=== PATIENT | female | born 1935 | race Caucasian/White ===

== ENCOUNTER 2016-09-20 09:51 | Inpatient (IN) ==
--- NOTE | 2016-09-20 09:59 | Emergency Department Note ---
Disposition Clinical Impression: Nausea & vomiting Qualifiers: Vomiting type: unspecified Vomiting Intractability: unspecified Qualified Code( s): R11.2 - Nausea with vomiting, unspecified Mastoiditis Qualifiers: Laterality: right Qualified Code(s): H70.91 - Unspecified mastoiditis, right ear Disposition: Admitted As Inpatient Condition: Serious Referrals: Unassigned,Provider [Non-Partnered Physician] - Forms: ED Satisfaction Letter Time of Disposition: 12:30 Nausea/Vomiting/Diarrhea HPI - General Chief complaint: ED Nausea/Vomiting/Diarrhea Stated complaint: N/V Time Seen by Provider: 09/20/16 09:53 Source: patient, family, EMS Mode of arrival: EMS Limitations: no limitations Nursing Notes Reviewed: Yes Vital Signs Reviewed: Yes - History of Present Illness HPI Narrative: 81-year-old with a 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 The patient received G -tube feeding last night and vomited this morning. Squad gave him a 500 mL fluid bolus with improvement in status. Daughter states the patient had a temperature 101.3 at home and the squad got 99. Pt Subjective Complaint: nausea, vomiting Onset (ago): day(s) Description of emesis: food contents (7) If pain, Location of pain: other (Associated with mandibular spread of her cancer) Severity: moderate Quality: aching Consistency: constant Improves with: nothing Associated symptoms: Reports: fever/chills, malaise - Related Data Previous Rx's Medication Instructions Recorded Lactose-Reduced Food/Fiber [Jevity 1 can PO 6XD #180 can 06/19/16 1.2 Benito Liquid] Omeprazole [PriLOSEC] 20 mg PO DAILY #90 cap 07/10/16 Clindamycin Palmitate HCl [Cleocin 300 mg PO QID #800 mls 08/03/16 Palmitate] Supplies [SUPPLIES] 1 each .ROUTE DAILY #30 each 08/03/16 Tobramycin/Dex Opth DROPS 1 drop BOTH EYES Q6H #1 bottle 08/03/16 [Tobradex Opth Drops] Capecitabine [Xeloda] 2 tab PO BID #56 tablet 08/20/16 Hydromorphone HCl [Dilaudid] 0.5 tab PO Q6H PRN #30 tablet 08/20/16 Clindamycin Palmitate HCl [Cleocin 20 ml GTUBE BID #280 mls 08/26/16 Palmitate] Ondansetron HCl [Zofran] 4 mg PO Q6H PRN #40 tablet 09/17/16 Prochlorperazine Maleate 10 mg PO Q6HR PRN #40 tablet 09/17/16 [Compazine] Allergies Allergy/AdvReac Type Severity Reaction Status Date / Time No Known Allergies Allergy Verified 07/10/16 09:41 All systems ED: reviewed and negative except as stated. Constitutional: Reports: fever. Denies: chills, weakness, weight change Eyes: Denies: eye pain, eye discharge, vision change ENT ED: Denies: ear pain, throat pain, dental pain, hearing loss, epistaxis, congestion, dysphagia Cardiovascular: Denies: chest pain, palpitations, dyspnea on exertion, edema, syncope Respiratory: Denies: cough, dyspnea, wheezes, hemoptysis, stridor Gastrointestinal: Reports: nausea, vomiting. Denies: abdominal pain, diarrhea, constipation, hematemesis, melena, hematochezia Genitourinary: Denies: dysuria, frequency, hematuria, discharge Musculoskeletal: Denies: back pain, neck pain, arthralgia, myalgia Integumentary: Denies: rash, abrasion, lesions Neurological: Denies: headache, weakness, numbness, paresthesias, confusion, abnormal gait, vertigo Psychiatric: Denies: anxiety, depression, suicidal thoughts, homicidal thoughts , auditory hallucinations, visual hallucinations Endocrine: Denies: fatigue Hematological/Lymphatic: Denies: easy bleeding, easy bruising Allergic/Immunologic: Denies: facial swelling, urticaria Past Medical History - Past Medical History Medical history: Reports: cancer, coronary artery disease, hyperlipidemia, hypertension, myocardial infarction Surgical history: Reports: angioplasty/stent, coronary bypass (CABG), other Psychiatric history: Reports: no psych history STEM MAKER history: Reports: no STEM MAKER history - Social History Smoking Status: Former smoker Smokeless Tobacco Status: No Alcohol use: Reports: none Drug use: Reports: none Physical Exam - General Limitations: no limitations General appearance: alert, in no apparent distress - Head Head exam: atraumatic, normocephalic, normal inspection - Eye Eye exam: Present: normal appearance, PERRL, EOMI - ENT ENT exam: mucous membranes dry, other (Lesion to the right side of her mandible with dressing in place) - Neck Neck exam: Present: normal inspection, full ROM, trachea midline - Chest Chest inspection: Present: normal inspection, symmetric chest wall rise - Respiratory Respiratory exam: Present: normal lung sounds bilaterally - Cardiovascular Cardiovascular exam: Present: regular rate, normal rhythm, normal heart sounds - Abdominal Exam Abdominal exam: Present: soft, Non-Tender. Absent: tenderness, distention, guarding, rebound, rigidity - Extremities Exam Extremities exam: Present: normal inspection, full ROM. Absent: tenderness, pedal edema - Expanded Lower Extremity Exam Neurovascular/Tendon exam: Absent: motor deficit, sensory deficit, tendon deficit Gait: not tested/not observed - Back Exam Back exam: Present: normal inspection - Neurological Exam Neurological exam: Present: alert. 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 Workup included a CT of the head which showed a new mastoid fluid and sinus fluid concerning for infection. Patient's had nausea vomiting CT of the abdomen shows no acute findings. Consultation with hematology. Time: 12:29 - Consultations Consultation #1: Discussed with Dr. Yip, we'll start antibiotics and they will see in consult. Time: 11:58 Consultation #2: Discussed with Dr. Oscar ervin. Time: 12:29 Vital Signs Temperature 98.2 F 09/20/16 09:57 Pulse Rate 109 09/20/16 09:57 Respiratory Rate 18 09/20/16 09:57 Blood Pressure 123/58 09/20/16 09:57 O2 Sat by Pulse Oximetry 93 09/20/16 09:57 Temperature 98.2 F 09/20/16 09:57 Pulse Rate 109 09/20/16 09:57 Respiratory Rate 18 09/20/16 09:57 Blood Pressure 123/58 09/20/16 09:57 O2 Sat by Pulse Oximetry 95 09/20/16 10:35 Oxygen Delivery Oxygen Delivery Room Air Nausea/Vomiting/Diarrhea - Lab Data Lab results reviewed: Yes I reviewed the patient's lab results. Result diagrams: 09/20/16 10:17 09/20/16 10:17 Lab Results 09/20/16 09/20/16 09/20/16 Range/Units 10:17 10:17 10:28 WBC 15.0 H (4.3-11.1) K/mcL RBC 3.24 L (3.82-4.97) M/mcL Hgb 9.4 L (11.5-15.4) g/dL Hct 29.6 L (35.3-44.9) % MCV 91.4 (83.0-100.0) fL MCH 29.0 (28.0-33.3) pg MCHC 31.8 (31.6-35.5) g/dL RDW 15.9 H (11.5-14.5) % Plt Count 239 (140-400) K/mcL MPV 9.1 L (9.4-12.4) fL Immature Gran % 0.3 (0-4) % Seg Neutrophils % 83.8 % Lymphocytes % 5.7 % Monocytes % 10.0 % Eosinophils % 0.1 % Basophils % 0.1 % Neutrophils # 12.6 H (1.6-8.9) K/mcL Lymphocytes # 0.9 (0.6-4.6) K/mcL Monocytes # 1.5 H (0.0-1.3) K/mcL Eosinophils # 0.0 (0.0-0.6) K/mcL Basophils # 0.0 (0.0-0.2) K/mcL Sodium 139 (136-145) mEq/L Potassium 3.4 L (3.5-4.5) mEq/L Chloride 104 (98-109) mEq/L Carbon Dioxide 28 (19-29) mEq/L BUN 26 H (7-20) mg/dL Creatinine 0.72 (0.57-1.11) mg/dL Est GFR ( Amer) > 60 (> 60) Est GFR (Non-Af Amer) > 60 (> 60) BUN/Creatinine Ratio 36 H (6-26) Glucose 132 H (70-99) mg/dL Calculated Osmolality 295 (280-300) Lactic Acid 1.0 (0.5-2.2) mmol/L Calcium 8.5 L (8.6-10.8) mg/dL Urine Color (Yellow) Urine Clarity (Clear) Urine pH (5.0-8.0) pH Units Ur Specific Spelter (1.010-1.025) Urine Protein (Neg-Trace) mg/dL Urine Glucose (UA) (Normal) mg/dL Urine Ketones (Negative) mg/dL Urine Blood (Negative) Urine Nitrite (Negative) Urine Bilirubin (Negative) Urine Urobilinogen (Normal) mg/dL Ur Leukocyte Esterase (Negative) Urine Microscopic RBC (0-3) per hpf Urine Microscopic WBC (0-3) per hpf Ur Squamous Epith Cells (None-Few) per lpf Urine Bacteria (None-Few) per hpf Hyaline Casts (None-Few) per lpf Ur Culture Indicated? (NO) 09/20/16 Range/Units 11:23 WBC (4.3-11.1) K/mcL RBC (3.82-4.97) M/mcL Hgb (11.5-15.4) g/dL Hct (35.3-44.9) % MCV (83.0-100.0) fL MCH (28.0-33.3) pg MCHC (31.6-35.5) g/dL RDW (11.5-14.5) % Plt Count (140-400) K/mcL MPV (9.4-12.4) fL Immature Gran % (0-4) % Seg Neutrophils % % Lymphocytes % % Monocytes % % Eosinophils % % Basophils % % Neutrophils # (1.6-8.9) K/mcL Lymphocytes # (0.6-4.6) K/mcL Monocytes # (0.0-1.3) K/mcL Eosinophils # (0.0-0.6) K/mcL Basophils # (0.0-0.2) K/mcL Sodium (136-145) mEq/L Potassium (3.5-4.5) mEq/L Chloride (98-109) mEq/L Carbon Dioxide (19-29) mEq/L BUN (7-20) mg/dL Creatinine (0.57-1.11) mg/dL Est GFR ( Amer) (> 60) Est GFR (Non-Af Amer) (> 60) BUN/Creatinine Ratio (6-26) Glucose (70-99) mg/dL Calculated Osmolality (280-300) Lactic Acid (0.5-2.2) mmol/L Calcium (8.6-10.8) mg/dL Urine Color Yellow (Yellow) Urine Clarity Cloudy A (Clear) Urine pH 7.0 (5.0-8.0) pH Units Ur Specific Spelter 1.018 (1.010-1.025) Urine Protein Negative (Neg-Trace) mg/dL Urine Glucose (UA) Normal (Normal) mg/dL Urine Ketones Negative (Negative) mg/dL Urine Blood Negative (Negative) Urine Nitrite Negative (Negative) Urine Bilirubin Negative (Negative) Urine Urobilinogen Normal (Normal) mg/dL Ur Leukocyte Esterase Negative (Negative) Urine Microscopic RBC 5-15 H (0-3) per hpf Urine Microscopic WBC 0-3 (0-3) per hpf Ur Squamous Epith Cells Many H (None-Few) per lpf Urine Bacteria None Seen (None-Few) per hpf Hyaline Casts None Seen (None-Few) per lpf Ur Culture Indicated? NO (NO) - Radiology Data Radiology results reviewed: Yes I reviewed the patient's radiology results. Abdomen/Pelvis CT 09/20/16 09:54 IMPRESSION: 1. No acute abnormality. 2. Extensive colonic diverticulosis. 3. Cholelithiasis. D/ / 09/20/2016 11:27:52 Milo Reaves MD / [facility] Interpreting Provider: Milo Reaves MD Chest X-Ray 09/20/16 09:55 IMPRESSION: No acute cardiopulmonary disease. D/ / 09/20/2016 10:57:05 Fer Mi MD / [facility] Interpreting Provider: Fer Mi MD Head CT 09/20/16 10:02 IMPRESSION: No acute intracranial abnormality. Right ethmoid and right mastoid air cell disease, new or increased since prior study. Fluid within the right sphenoid sinus is present raising the possibility of acute inflammation D/ / Amber Walton Cha, MD / Amber Walton Cha, MD Interpreting Provider: Amber Walton Cha, MD
[2016-09-20 10:23] LABS: Basophils % 0.1 %; Eosinophils % 0.1 %; Hematocrit 29.6 % (35.3-44.9); Hemoglobin 9.4 g/dL (11.5-15.4); Immature Granulocytes % 0.3 % (0-4); Lymphocytes # 0.9 K/mcL (0.6-4.6); Lymphocytes % 5.7 %; Mean Corpuscular HGB Conc 31.8 g/dL (31.6-35.5); Mean Corpuscular Volume 91.4 fL (83.0-100.0); Mean Platelet Volume 9.1 fL (9.4-12.4); Monocytes # 1.5 K/mcL (0.0-1.3); Neutrophils # 12.6 K/mcL (1.6-8.9); Platelet Count 239 K/mcL (140-400); Red Blood Count 3.24 M/mcL (3.82-4.97); Red Cell Distribution Width 15.9 % (11.5-14.5); Segmented Neutrophils % 83.8 %
[2016-09-20 10:37] LABS: BUN/Creatinine Ratio 36 (6-26); Blood Urea Nitrogen 26 mg/dL (7-20); Calcium 8.5 mg/dL (8.6-10.8); Carbon Dioxide 28 mEq/L (19-29); Chloride 104 mEq/L (98-109); Glucose 132 mg/dL (70-99); Osmolality,Calculated 295 (280-300); Potassium 3.4 mEq/L (3.5-4.5); Sodium 139 mEq/L (136-145); eGFR For African Americans > 60 (> 60); eGFR For Non-African Americans > 60 (> 60)
[2016-09-20 11:29] LABS: Bilirubin,Urine Negative (Negative); Blood,Urine Negative (Negative); Clarity,Urine Cloudy (Clear); Color,Urine Yellow (Yellow); Glucose,Urine (UA) Normal (Normal); Ketones,Urine Negative (Negative); Leukocyte Esterase,Urine Negative (Negative); Nitrite,Urine Negative (Negative); Protein,Urine Negative (Neg-Trace); Specific Gravity,Urine 1.018 (1.010-1.025); Urobilinogen,Urine Normal (Normal)
[2016-09-20 11:31] LABS: Bacteria,Urine None Seen per hpf (None-Few); Hyaline Casts,Urine None Seen per lpf (None-Few); Squamous Epithelial Cell,Urine Many per lpf (None-Few); WBC,Urine 0-3 per hpf (0-3)
[2016-09-20] MEDS ORDERED: Piperacillin/Tazobactam 3.375 GM in D5% in Water (Mini-Bag+) 100 ML IVPB ONE (12:00)
[2016-09-20] MEDS ORDERED: Pantoprazole 40 MG VIAL IVP SCH (13:15)
[2016-09-20] MEDS ORDERED: Naloxone 0.4 MG/ML INJ IVP PRN (13:15)
[2016-09-20] MEDS ORDERED: *HR* HYDROmorphone (PF) 1 MG/ML SYRINGE IVP PRN (13:15)
[2016-09-20] MEDS ORDERED: Ondansetron 4 MG/2 ML VIAL IVP PRN (13:15)
[2016-09-20] MEDS ORDERED: 0.9 % Sodium Chloride 500 ML IVC ONE (13:44)
--- NOTE | 2016-09-20 13:52 | Internal Med History&Physical ---
<Matty Figueroa - Last Filed: 09/20/16 14:47> Date of Encounter: 09/20/16 Time of Encounter: 12:30 Assessment and Plan (1) Sepsis Current visit: Yes Status: Acute Patient presents with sepsis upon admission to the ED with WBC of 15 and heart rate of 109. Patient's temperature upon admission to ED is 99 via axillary. Rectal temp ordered stat due to patient feeling warmer than 99.0F. Patient to receive IV bolus of normal saline 500 mL followed by IV normal saline 100 mL per hour. Timed lactic acids ordered. Patient received IV Zosyn in the ED. We will continue IV Zosyn 3.375 g every 8 and add IV vancomycin with pharmacy dosing. Continuous cardiac telemetry and supplemental O2 ordered. Patient to be monitored closely for increased signs of infection, sepsis, and cardiac/ respiratory decline. Qualifiers: Sepsis type: sepsis due to unspecified organism Qualified Code(s): A41.9 - Sepsis, unspecified organism (2) Nausea & vomiting Current visit: Yes Status: Acute Patient presents with acute nausea and vomiting for the past 7 days. Patient is currently unable to take any food, medication, or fluids through her PEG tube due to vomiting. IV Zofran ordered when necessary and IV Protonix 40 mg daily ordered with initial dose ordered stat. We will monitor I&O as well as patient's daily weight. Tube feedings to be resumed as tolerated. Currently patient's medications have been held and converted to IV form with the exception of Jevity which will be administered as tolerated. Qualifiers: Vomiting type: cyclical vomiting Vomiting Intractability: intractable Qualified Code(s): G43.A1 - Cyclical vomiting, intractable (3) Dehydration Current visit: Yes Status: Acute Patient presents with dehydration due to 7 days of nausea and vomiting. On examination, patient's mucous membranes are dry. Mild skin tenting present. IV bolus of normal saline ordered, to be followed by IV normal saline 100 mL per hour. Electrolyte protocol ordered. Follow-up labs ordered. Will monitor patient's I's and O's as well as daily weight. (4) Tachycardia Current visit: Yes Status: Acute Patient presents with acute tachycardia related to current infection status and sepsis. Patient's family denies any cardiac history. Placed on continuous cardiac telemetry and supplemental O2. IV antibiotics ordered for infection coverage. Sepsis protocol to be followed. (5) Encounter for palliative care Current visit: Yes Status: Acute Patient presents with advanced stage head and neck cancer. Mrs. Hong is admitted for sepsis and infection. Patient has open wound of right jaw and cheek which extends through the fascia into the mouth due to cancer. Patient's current BMI 17.8. Patient has been experiencing nausea and vomiting for over 7 days and is unable to take food, medications or liquids through her PEG tube. Discussed the need for proper care with family who is amenable to having Mrs. Harris followed by palliative care and hospice. Discussed the case with Dr. Acosta who will see the patient. (6) Hypertension Current visit: Yes Status: Chronic Patient has a history of chronic hypertension but upon admission her BP is 123/ 58. We will monitor patient's BP and vital signs and consider adding IV Lopressor if patient becomes hypertensive. Patient is currently experiencing nausea and vomiting and able to take anything via PEG tube. 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 Upon admission, patient's hemoglobin is 9.4 and hematocrit is 29.6 with results are not far off from patient's baseline over the past several months. We will continue to watch her levels through follow-up labs that have been ordered. Qualifiers: Anemia type: unspecified type Qualified Code(s): D64.9 - Anemia, unspecified (8) Open facial wound Current visit: Yes Status: Chronic Patient presents with open facial wound that extends through the fascia into the mouth due to cancer diagnosis. Patient's family states that the wound has increased in size considerably. Patient is currently followed by Dr. Escobedo for oncology. Oncology consult ordered and placed. Qualifiers: Encounter type: subsequent encounter Qualified Code(s): S01.80XD - Unspecified open wound of other part of head, subsequent encounter (9) DVT prophylaxis Current visit: Yes Status: Acute Patient placed on DVT prophylaxis to admission protocol, current bedrest status , and current sepsis. Heparin 5,000 units SQ Q8 ordered. Internal Medicine - H&P: HPI Chief complaint: N/V Admitted From: Emergency Dept Plans for Post Hospital Care: Home History of present illness: Mrs. Harris is a 81 year old female who presents from the ED with chief complaint of nausea and vomiting for the past week. Her daughter reports that she has not had anything via her PEG tube since yesterday at 11 a.m. due to the continued nausea and vomiting. Mrs. Harris has cancer of the head and neck which was in remission but has now returned and worsened. She has an open wound through her right jaw and cheek that is erythematous, edematous, and oozing fluid. Upon admission, patient's initial labs showed WBC of 15.0. Patient is also tachycardic with HR of 109, and axillary temp of 99.0. Patient feels warmer during examination, so rectal temp ordered. Patient currently meets sepsis criteria. History provided by her daughter (POA) reveals that the patient stopped radiation treatments due to the wound on her face and only completed three treatments. Patient was receiving chemotherapy and finished her last treatment of Xeloda on September 17. Patient is due to have a follow-up CT in two weeks and is followed by Dr. Escobedo for oncology. Patient currently has patent PEG tube in place and takes nothing by mouth. Patient is at high risk for further infection and morbidity due to sepsis and is to be admitted as inpatient. Blood and wound cultures have been ordered, as well as timed lactic acids. Patient is dehydrated due to cyclical vomiting episodes and will receive IV bolus of 500 mL followed by IV NS 0.9 at 100 mL/HR. Electrolyte protocol ordered. Patient received IV Zosyn in the ED. Will continue IV Zosyn 3.375 gm Q8 and add IV vancomycin 1,000 mg Q12. Consult for oncology placed in ED. Discussed need for palliative care with family and daughter who is the POA and all are amenable to palliative being brought on board for Mrs. Harris's care. Consult with palliative care ordered and discussed with Dr. Acosta who will see the patient. Patient to be monitored closely for signs of increased infection and/or cardiac/respiratory symptoms related to current sepsis. Time spent with patient and family >50 minutes. Past Med Surg Social Fam HX - Past Medical History Source: obtained from family Medical history: cancer, coronary artery disease, hyperlipidemia, hypertension, myocardial infarction Psychiatric history: no psych history - Past Surgical History Surgical History: angioplasty/stent, coronary bypass (CABG), other - Social History Smoking Status: Former smoker Smokeless Tobacco Status: No Alcohol use: none Drug use: none Current living situation: Home, With Family Activity Level: Independent ambulation Recent Out of Country Travel Within the Last 8 Weeks: No Exposure or Possible Exposure to Illness During Travel: No - Family History Father Race: Family Member Ethnicity: Non- Living Status: Age at : 81 Cause of : Throat cancer Hx Family Cancer: Yes (Throat) Mother Race: Family Member Ethnicity: Non- Living Status: Age at : 32 Cause of : in a fire Brother Race: Family Member Ethnicity: Non- Living Status: Age at : 66 Cause of : [place] Hx Family Cardiac Disorders: Yes ([place]) Hx Family Cancer: Yes (Leukemia) Sister Race: Family Member Ethnicity: Non- Living Status: Age at : 45 Cause of : Stroke Hx Family Cardiac Disorders: Yes (Stroke x2, [place]) Internal Medicine - H&P: Meds Lactose-Reduced Food/Fiber [Jevity 1.2 Benito Liquid] 1 can PO 6XD #180 can [Rx] Omeprazole [PriLOSEC] 20 mg PO DAILY #90 cap 07/10/16 [Rx] Tobramycin/Dex Opth DROPS [Tobradex Opth Drops] 1 drop BOTH EYES Q6H #1 bottle 08/03/16 [Rx] Capecitabine [Xeloda] 2 tab PO BID #56 tablet 08/20/16 [Rx] Hydromorphone HCl [Dilaudid] 0.5 tab PO Q6H PRN #30 tablet 08/20/16 [Rx] Ondansetron HCl [Zofran] 4 mg PO Q6H PRN #40 tablet 09/17/16 [Rx] Prochlorperazine Maleate [Compazine] 10 mg PO Q6HR PRN #40 tablet 09/17/16 [Rx] Naproxen Sodium [Aleve] 220 mg PO Q8H PRN 09/20/16 [History] Allergies No Known Allergies Allergy (Verified 09/20/16 13:13) All Systems PM: A 10-system review of systems was performed and is negative for pertinent findings except as documented above in the HPI. - Constitutional Constitutional: as per HPI, anorexia (Past week due to N/V), fever(s), no chills , no night sweats - EENT Eyes: no change in vision, no discharge, no pain, no photophobia Ears: no ear discharge, no ear pain, no tinnitus Nose, mouth and throat: no dysphagia, no nasal discharge, no neck pain, no sore throat - Breasts Breasts: as per HPI - Cardiovascular Cardiovascular ROS IM: no chest pain, no diaphoresis, no dyspnea, no lightheadedness, no palpitations, no syncope - Respiratory Respiratory: no cough, no dyspnea, no wheezing, no excessive phlegm production - Gastrointestinal Gastrointestinal: as per HPI, abdominal pain, nausea, vomiting - Genitourinary Genitourinary: no change in urinary stream, no dysuria, no flank pain, no hematuria Menstruation: as per HPI, post menopausal - Musculoskeletal Musculoskeletal ROS IM: as per HPI, neck pain (Pain in neck and face related to cancer), no numbness, no tingling - Integumentary Integumentary IM: as per HPI, non-healing lesions (Wound on right jaw and cheek has increased in size according to family and is erythematous, edematous, and oozing fluid) - Neurological Neurological ROS: as per HPI, abnormal speech (Due to cancer of the face), no confusion, no convulsions, no focal weakness, no numbness, no tingling, no tremor(s) - Psychiatric Psychiatric: as per HPI - Endocrine Endocrine IM: as per HPI - Hematologic/Lymphatic Hematologic/Lymphatic: no easy bruising - Allergic/Immunologic Allergic/Immunologic: as per HPI - Constitutional Vitals: Temp Pulse Resp BP Pulse Ox 98.2 F 109 18 123/58 95 09/20/16 09:57 09/20/16 09:57 09/20/16 09:57 09/20/16 09:57 09/20/16 10:35 General appearance: Present: cooperative, A&O X 3, no acute distress, underweight, answers questions appropriately (Dysarthria due to cancer of the face and neck) - Head Additional comments: Patient has an open wound to the right cheek and jaw that extends through the entire fascia into the mouth due to cancer. Patient's family states that the wound has tripled in size. The wound is oozing fluid and is erythematous and edematous. - Eye Eye exam: Present: conjuntiva pink, sclera anicteric - ENT ENT exam: Present: mucous membranes dry - Neck Neck exam general surgery: Present: tenderness - Respiratory Respiratory exam: Present: CTAB. Absent: accessory muscle use, rales, rhonchi, wheezes - Cardiovascular Cardiovascular exam: Present: tachycardia - GI/Abdominal GI/Abdominal exam: Present: diminished bowel sounds, guarding, soft, tenderness - Rectal Rectal exam: Present: deferred - Additional comments: exam deferred. - Extremities Exam Extremities exam: Present: warm, radial pulses palpable and symetrical. Absent : calf tenderness, cyanotic, pedal edema - Back Exam Back exam: Present: normal inspection - Neurological Exam Neurological exam: Present: CN II-XII intact, oriented X3, no focal deficits, speech deficit (Due to cancer of the face). Absent: pronater drift, facial droop - Psychiatric Psychiatric exam: Present: normal affect, normal mood - Skin Skin exam: Present: dry, intact Internal Med - H&P Results - Labs CBC & Chem 7: 09/20/16 10:17 09/20/16 10:17 - EKG Data -: EKG Interpreted by Myself EKG shows normal: sinus rhythm Rate: tachycardia - EKG Data EKG comments: 09/20/16 14:24 EKG dated 09/20/16 shows sinus tachycardia and voltage criteria for LVH. - Diagnostic Studies CT scan - head Additional comments: Impressions Head CT 09/20/16 10:02 IMPRESSION: No acute intracranial abnormality. Right ethmoid and right mastoid air cell disease, new or increased since prior study. Fluid within the right sphenoid sinus is present raising the possibility of acute inflammation D/ / Amber Walton Cha, MD / Amber Walton Cha, MD Interpreting Provider: Amber Walton Cha, MD Chest x-ray Additional comments: Impressions Chest X-Ray 09/20/16 09:55 IMPRESSION: No acute cardiopulmonary disease. D/ / 09/20/2016 10:57:05 Fer Mi MD / liz Interpreting Provider: Fer Mi MD CT scan - abdomen Additional comments: Impressions Abdomen/Pelvis CT 09/20/16 09:54 IMPRESSION: 1. No acute abnormality. 2. Extensive colonic diverticulosis. 3. Cholelithiasis. <MooreNaomiLuís Torres - Last Filed: 09/20/16 16:30> Date of Encounter: 09/20/16 Internal Medicine - H&P: HPI History of present illness: Ms. Harris is a 81 year old female All Systems PM: A 10-system review of systems was performed and is negative for pertinent findings except as documented above in the HPI. - Constitutional Vitals: Temp Pulse Resp BP Pulse Ox 98.5 F 98 17 151/54 93 09/20/16 15:08 09/20/16 15:08 09/20/16 15:08 09/20/16 15:08 09/20/16 15:08 Internal Med - H&P Results - Labs CBC & Chem 7: 09/20/16 10:17 09/20/16 10:17 - Attending Attestation I have seen and examined the patient at around 15:30. I have discussed about the patient with Matty Figueroa NP. I have reviewed the orders and the note. Patient is a 81-year-old female with past history of past medical history of coronary artery disease, hyperlipidemia, hypertension and stage IV head and neck cancer undergoing chemotherapy and radiation therapy. Patient presents to the ED with complaints of generalized weakness and nausea and vomiting. Symptoms started about a week ago and gradually worsened. Patient also seems to have fever. Symptoms are almost constant. No aggravating or alleviating factors. Vomiting is worse with PEG tube feedings. Patient has not had any tube feeds since since yesterday. Patient does have an open wound in her right jaw and cheek due to radiation therapy. Personal history is provided by her daughter is the power of school bus dispatcher. Radiation treatments and then stopped due to the open wound in her right jaw. Initial workup in the ED today reveals elevated white count, low potassium and low magnesium. Chest x-ray and CT of abdomen are negative for any acute process. CT of the head revealed no acute event. No abnormality of the results and right ethmoid and right mastoid air cell disease which is new or increased. Patient is being admitted for sepsis and nausea and vomiting and dehydration. She will be on IV fluids, on IV antibiotics and also on now electrolyte protocol. Daughter states that they will have a discussion with palliative care. Oncology consult pending. Patient and family explained about her condition and plan of care. Understood and agreed. No unanswered questions. CODE STATUS DO NOT RESUSCITATE and DO NOT INTUBATE comfort care arrest.
--- NOTE | 2016-09-20 15:38 | Oncology Inp Consult Note ---
<Luís Diamond - Last Filed: 09/20/16 16:16> Date of Encounter: 09/20/16 - Data of Consult Requesting Physician: Todd Esposito Primary Care Provider: Darrell Nicole MD - Consult Narrative History of present illness: Ms. Harris is a 81 year old female Medications and Allergies Lactose-Reduced Food/Fiber [Jevity 1.2 Benito Liquid] 1 can PO 6XD #180 can [Rx] Omeprazole [PriLOSEC] 20 mg PO DAILY #90 cap 07/10/16 [Rx] Tobramycin/Dex Opth DROPS [Tobradex Opth Drops] 1 drop BOTH EYES Q6H #1 bottle 08/03/16 [Rx] Capecitabine [Xeloda] 2 tab PO BID #56 tablet 08/20/16 [Rx] Hydromorphone HCl [Dilaudid] 0.5 tab PO Q6H PRN #30 tablet 08/20/16 [Rx] Ondansetron HCl [Zofran] 4 mg PO Q6H PRN #40 tablet 09/17/16 [Rx] Prochlorperazine Maleate [Compazine] 10 mg PO Q6HR PRN #40 tablet 09/17/16 [Rx] Naproxen Sodium [Aleve] 220 mg PO Q8H PRN 09/20/16 [History] Allergies No Known Allergies Allergy (Verified 09/20/16 13:13) Oncology - Exam - Constitutional Vitals: Temp Pulse Resp BP Pulse Ox 98.5 F 98 17 151/54 93 09/20/16 15:08 09/20/16 15:08 09/20/16 15:08 09/20/16 15:08 09/20/16 15:08 Consult Discharge Plan - Plan Referrals: Darrell Nicole MD [Primary Care Provider] - - Attending Attestation I have seen and examined the patient at around 15:30. I have discussed about the patient with Matty Figueroa NP. I have reviewed the orders and the note. Patient is a 81-year-old female with past history of past medical history of coronary artery disease, hyperlipidemia, hypertension and stage IV head and neck cancer undergoing chemotherapy and radiation therapy. Patient presents to the ED with complaints of generalized weakness and nausea and vomiting. Symptoms started about a week ago and gradually worsened. Patient also seems to have fever. Symptoms are almost constant. No aggravating or alleviating factors. Vomiting is worse with PEG tube feedings. Patient has not had any tube feeds since since yesterday. Patient does have an open wound in her right jaw and cheek due to radiation therapy. Personal history is provided by her daughter is the power of divorce attorney. Radiation treatments and then stopped due to the open wound in her right jaw. Initial workup in the ED today reveals elevated white count, low potassium and low magnesium. Chest x-ray and CT of abdomen are negative for any acute process. CT of the head revealed no acute event. No abnormality of the results and right ethmoid and right mastoid air cell disease which is new or increased. Patient is being admitted for sepsis and nausea and vomiting and dehydration. She will be on IV fluids, on IV antibiotics and also on now electrolyte protocol. Daughter states that they will have a discussion with palliative care. Oncology consult pending. Patient and family explained about her condition and plan of care. Understood and agreed. No unanswered questions. CODE STATUS DO NOT RESUSCITATE and DO NOT INTUBATE comfort care arrest. 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 springer from tumor erosion, not a surgical candidate has been on palliative treatment status post nivolumab, currently on palliative Xeloda with cetuximab she had received palliative radiation in the past, . - Data of Consult Requesting Physician: Tdod Esposito Primary Care Provider: Darrell Nicole MD - Consult Narrative Reason for consult: head and neck ca, sepsis History of present illness: PLEASE REFER TO MY ALTERNATIVE CONSULT NOTES FOR FULL CONSULT THIS DATE Past Med Surg Social Fam HX - Past Medical History Medical history: cancer, coronary artery disease, hyperlipidemia, hypertension, myocardial infarction Psychiatric history: no psych history - Past Surgical History Surgical History: angioplasty/stent, coronary bypass (CABG), other - Social History Smoking Status: Former smoker Smokeless Tobacco Status: No Alcohol use: none Drug use: none - Family History Father Race: Family Member Ethnicity: Non- Living Status: Age at : 81 Cause of : Throat cancer Hx Family Cancer: Yes (Throat) Mother Race: Family Member Ethnicity: Non- Living Status: Age at : 32 Cause of : in a fire Brother Race: Family Member Ethnicity: Non- Living Status: Age at : 66 Cause of : [place] Hx Family Cardiac Disorders: Yes (PR) Hx Family Cancer: Yes (Leukemia) Sister Race: Family Member Ethnicity: Non- Living Status: Age at : 45 Cause of : Stroke Hx Family Cardiac Disorders: Yes (Stroke x2, PR) Oncology - Exam - Constitutional Vitals: Temp Pulse Resp BP Pulse Ox 98.5 F 98 17 151/54 93 09/20/16 15:08 09/20/16 15:08 09/20/16 15:08 09/20/16 15:08 09/20/16 15:08
[2016-09-20] MEDS ORDERED: LACTOSE REDUCED FOOD PO SCH (16:00)
[2016-09-20] MEDS ORDERED: FIBER PO SCH (16:00)
[2016-09-20] MEDS ORDERED: *HR* Heparin 5,000 UNIT/ML VIAL SQ SCH (16:00)
[2016-09-20] MEDS ORDERED: [UNRECOGNIZED DRUG - OTHER] PO SCH (16:00)
[2016-09-20] MEDS: Vancomycin 750 MG in D5% in Water 250 ML IVPB SCH (16:35)
[2016-09-20] MEDS: Tobramycin/Dex Opth DROPS 2.5 ML BOTTLE BOTH EYES SCH ×2 (16:37→19:58)
--- NOTE | 2016-09-20 17:28 | Oncology Inp Consult Note ---
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 springer from tumor erosion, not a surgical candidate has been on palliative treatment status post nivolumab, currently on palliative Xeloda with cetuximab she had received palliative radiation in the past. Hospitalized with fever nausea vomiting, rule out infection sepsis, mild leukocytosis in the labs. She started on Zosyn and vancomycin, IV hydration proton pump inhibition CT scan of the abdomen does not show any significant abnormalities than diverticulosis, shows possible sinus inflammation. \ Continue holding Xeloda. Planned reimaging of facial bones at a later date by her oncologist and if progression she was told would discontinue theraoy. Daughter will discuss with palliative care team goals of care and hospice/ palliative option. Pain on dilaudid prn not needing on regular basis. Plan d/w patient and daughter bedside who stated understanding. - Data of Consult Requesting Physician: Todd Esposito Primary Care Provider: Darrell Nicole MD - Consult Narrative Reason for consult: HEAD AND NECK CA, SEPSIS History of present illness: Ms. 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 She had received nivolumab through radiation and due to progression in August 2016 started cetuximab with Xeloda. She is admitted with nausea vomiting and unable to take PEG tube feedings, right jaw area erythematous oozing fluid suspicious for infections/tumor. Patient had undergone CT scan of the head that showed right ethmoid and right mastoid air cell disease increased from prior study fluid within right sphenoid sinus possibly due to acute inflammation , CT abdomen and pelvis without contrast no acute abnormalities. She had received Zosyn and vancomycin and currently on antibiotics. Mild leucocytosis in labs, UA cloudy-no bacteria. Patient had declined hospice care in the past per radiation oncology notes, is agreeable to consulting palliative care She has pain in the right jaw when the dressing is changed only. She had tried ondansetron and Compazine at home without relief. He has chronic secretions, out of the oral cavity fistula SITE. The site has been erythematous chronically. Patient had missed infusion last Wednesday due to feeling sick. And has not been taking Xeloda orally. She denies any diarrhea or dysuria episodes. Temperature of 100.7 at home. Past Med Surg Social Fam HX - Past Medical History Medical history: cancer, coronary artery disease, hyperlipidemia, hypertension, myocardial infarction Psychiatric history: no psych history - Past Surgical History Surgical History: angioplasty/stent, coronary bypass (CABG), other - Social History Smoking Status: Former smoker Smokeless Tobacco Status: No Alcohol use: none Drug use: none - Family History Father Race: Family Member Ethnicity: Non- Living Status: Age at : 81 Cause of : Throat cancer Hx Family Cancer: Yes (Throat) Mother Race: Family Member Ethnicity: Non- Living Status: Age at : 32 Cause of : in a fire Brother Race: Family Member Ethnicity: Non- Living Status: Age at : 66 Cause of : [place] Hx Family Cardiac Disorders: Yes ([place]) Hx Family Cancer: Yes (Leukemia) Sister Race: Family Member Ethnicity: Non- Living Status: Age at : 45 Cause of : Stroke Hx Family Cardiac Disorders: Yes (Stroke x2, [place]) Medications and Allergies Lactose-Reduced Food/Fiber [Jevity 1.2 Benito Liquid] 1 can PO 6XD #180 can [Rx] Omeprazole [PriLOSEC] 20 mg PO DAILY #90 cap 07/10/16 [Rx] Tobramycin/Dex Opth DROPS [Tobradex Opth Drops] 1 drop BOTH EYES Q6H #1 bottle 08/03/16 [Rx] Capecitabine [Xeloda] 2 tab PO BID #56 tablet 08/20/16 [Rx] Hydromorphone HCl [Dilaudid] 0.5 tab PO Q6H PRN #30 tablet 08/20/16 [Rx] Ondansetron HCl [Zofran] 4 mg PO Q6H PRN #40 tablet 09/17/16 [Rx] Prochlorperazine Maleate [Compazine] 10 mg PO Q6HR PRN #40 tablet 09/17/16 [Rx] Naproxen Sodium [Aleve] 220 mg PO Q8H PRN 09/20/16 [History] Allergies No Known Allergies Allergy (Verified 09/20/16 13:13) Review of systems: IN hpi Oncology - Exam - Constitutional Vitals: Temp Pulse Resp BP Pulse Ox 98.5 F 98 17 151/54 93 09/20/16 15:08 09/20/16 15:08 09/20/16 15:08 09/20/16 15:08 09/20/16 15:08 General appearance: thin - Head Additional comments: rt buccal cavity open lesion in dressing - ENT Additional comments: not able to evaluate oral cavity - Neck Additional comments: no adenopathy in the neck - Respiratory Respiratory exam: Present: CTAB - Cardiovascular Cardiovascular exam: Present: +S1, +S2 - GI/Abdominal GI/Abdominal exam: Present: normal bowel sounds, soft Additional comments: g tube site without evidence of infection. No tenderness - Extremities Exam Additional comments: no edema, nl inspection - Neurological Exam Neurological exam: Present: alert, CN II-XII intact, oriented X3 - Psychiatric Psychiatric exam: Present: normal affect Oncology - Results - Imaging and Cardiology CT scan - abdomen Status: image reviewed by me CT scan - head Status: image reviewed by me Consult Discharge Plan - Plan Referrals: Darrell Nicole MD [Primary Care Provider] -
[2016-09-20] MEDS: 0.9 % Sodium Chloride 1,000 ML IVC SCH (17:29)
[2016-09-20] MEDS ORDERED: Vancomycin 1,000 MG in D5% in Water 250 ML IVPB SCH (18:00)
[2016-09-20] MEDS ORDERED: Magnesium Sulfate 2 GM in D5% in Water 100 ML IVPB ONE (18:44)
[2016-09-20] MEDS ORDERED: Piperacillin/Tazobactam 3.375 GM in D5% in Water (Mini-Bag+) 100 ML IVPB SCH ×2 (20:00→23:00)
[2016-09-20] MEDS: *HR* Heparin 5,000 UNIT/ML VIAL SQ SCH (23:47)
[2016-09-20] MEDS: Piperacillin/Tazobactam 3.375 GM in D5% in Water (Mini-Bag+) 100 ML IVPB SCH (23:48)
[2016-09-21 01:51] LABS: Ionized Calcium 1.11 mmol/L (1.15-1.35)
[2016-09-21 02:01] LABS: Alanine Aminotransferase 12 Units/L (0-55); Albumin 2.1 g/dL (3.5-5.0); Albumin/Globulin Ratio 0.7 (1.1-2.2); Alkaline Phosphatase 62 Units/L (38-126); Aspartate Amino Transferase 16 Units/L (5-34); BUN/Creatinine Ratio 24 (6-26); Bilirubin,Total 0.4 mg/dL (0.2-1.2); Blood Urea Nitrogen 16 mg/dL (7-20); Calcium 8.3 mg/dL (8.6-10.8); Carbon Dioxide 28 mEq/L (19-29); Chloride 105 mEq/L (98-109); Globulin 3.1 g/dL (2.4-3.5); Glucose 107 mg/dL (70-99); Magnesium 2.1 mg/dL (1.6-2.6); Osmolality,Calculated 288 (280-300); Phosphorous 2.6 mg/dL (2.3-4.7); Sodium 138 mEq/L (136-145); Total Protein 5.2 g/dL (6.0-8.3); eGFR For African Americans > 60 (> 60); eGFR For Non-African Americans > 60 (> 60)
[2016-09-21] MEDS ORDERED: Sodium Phosphate 30 MMOL in D5% in Water 100 ML IVPB PRN (02:35)
[2016-09-21] MEDS ORDERED: Calcium Gluconate 1,000 MG in D5% in Water 100 ML IVPB PRN (02:35)
[2016-09-21] MEDS: Tobramycin/Dex Opth DROPS 2.5 ML BOTTLE BOTH EYES SCH ×4 (02:41→19:50)
[2016-09-21] MEDS ORDERED: Naloxone 0.4 MG/ML INJ IVP PRN (03:25)
[2016-09-21] MEDS ORDERED: 0.9 % Sodium Chloride 1,000 ML IVC SCH (03:30)
[2016-09-21] MEDS: 0.9 % Sodium Chloride 1,000 ML IVC SCH (03:42)
[2016-09-21] MEDS: Potassium Phosphate 44 MEQ in 0.9 % Sodium Chloride 250 ML IVPB PRN (03:42)
[2016-09-21 04:50] LABS: Basophils % 0.2 %; Eosinophils # 0.9 K/mcL (0.0-0.6); Eosinophils % 6.4 %; Hematocrit 26.7 % (35.3-44.9); Hemoglobin 8.4 g/dL (11.5-15.4); Immature Granulocytes % 0.7 % (0-4); Lymphocytes % 7.6 %; Mean Corpuscular HGB Conc 31.5 g/dL (31.6-35.5); Mean Corpuscular Volume 92.1 fL (83.0-100.0); Mean Platelet Volume 8.7 fL (9.4-12.4); Monocytes # 1.2 K/mcL (0.0-1.3); Monocytes % 8.7 %; Neutrophils # 10.2 K/mcL (1.6-8.9); Platelet Count 249 K/mcL (140-400); Segmented Neutrophils % 76.4 %
[2016-09-21] MEDS: Piperacillin/Tazobactam 3.375 GM in D5% in Water (Mini-Bag+) 100 ML IVPB SCH ×3 (06:13→23:35)
[2016-09-21] MEDS: *HR* Heparin 5,000 UNIT/ML VIAL SQ SCH ×3 (08:13→23:36)
[2016-09-21] MEDS: Pantoprazole 40 MG VIAL IVP SCH (08:13)
--- NOTE | 2016-09-21 09:47 | Palliative - Consult Note ---
Date of Encounter: 09/21/16 Time of Encounter: 08:50 - Assessment and Plan (1) Cancer associated pain Current Visit: Yes Status: Acute Assessment and plan: Pain is under good control at this time, patient states it only really hurts with a change the dressing. No changes anticipated today in medications continue to watch. (2) Goals of care, counseling/discussion Current Visit: Yes Status: Acute Assessment and plan: The patient is already DNR CCA, DNI. The patient's also made up her advanced directives directing that her daughter who lives with her power of insurance attorney. There are 4 children. Daughter medical power of insurance attorney will be entity at 1300 hrs. we will discuss further. Did discuss with the patient briefly about hospice care she is considering her options at this time. (3) Open facial wound Current Visit: Yes Status: Chronic Assessment and plan: Wound care is involved, patient's infection seems to be getting at least slightly better in that the patient feels better, the white count is coming down. Plan per hospitalist team Qualifiers: Encounter type: subsequent encounter Qualified Code(s): S01.80XD - Unspecified open wound of other part of head, subsequent encounter (4) Nausea & vomiting Current Visit: Yes Status: Acute Assessment and plan: The patient states she she has had no more nausea and vomiting late last night no when necessary nausea medication has been used thus far. Plan to restart the PEG tube feeding will be per the hospitalist team and they are ready. Qualifiers: Vomiting type: cyclical vomiting Vomiting Intractability: intractable Qualified Code(s): G43.A1 - Cyclical vomiting, intractable (5) Squamous cell carcinoma of mouth Current Visit: No Status: Chronic Assessment and plan: The patient has been through chemotherapy and radiation before getting chemotherapy and the cancer has broken through again. It is palliative in nature at this time. We will discuss options with the family. Of note plan reimaging in a couple of weeks if it was worse, the plan was to stop the chemotherapy altogether. Palliative-CN HPI - Data of Consult Patient: new to practice Requesting Physician: Luís Diamond Primary Care Provider: Darrell Nicole MD - Consult Narrative Palliative Care/Comfort Measures: Palliative care Reason for consult: Goals of care History of present illness: Ms. Harris is a 81 year old female With a history of recurrent head and neck cancer specifically squamous cell carcinoma of the mouth and the right retromolar trigone mucosa involvement into the right maxillary sinus orocutaneous fistula. Patient is not considered a surgical candidate at this point and has been on palliative therapy with notable Mab and currently on Xeloda with cetuximab. She has received palliative radiation in the past. Is currently hospitalized due to increasing nausea and vomiting unable to keep anything that was going in her PEG tube down. Eating worse for the last week. She is also had increasing pain and discharge from her a short wound. Is erythematous and edematous and losing fluid on admission the white count was 15,000 temperature was 99 and she was tachycardic. Radiation treatment has been stopped she completed her last dose of Xeloda on September 17. Is scheduled for follow-up CT with Dr. Macario proximally 2 weeks. Plan has been to continue [place] chemotherapy. If there was progression they were going to stop the chemotherapy. At this point the palliative care team was consulted regarding goals of care. States that she does have pain only with her changing the dressing her wound on the right side of her face. This morning her nausea and vomiting is markedly better, however she is not getting any tube feeds currently. He is looking forward to them being started back up. CC: Luís Moore-Brian Nausea and vomiting Past Med Surg Social Fam HX - Past Medical History Medical history: cancer, coronary artery disease, hyperlipidemia, hypertension, myocardial infarction Psychiatric history: no psych history - Past Surgical History Surgical History: angioplasty/stent, coronary bypass (CABG), other - Social History Smoking Status: Former smoker Smokeless Tobacco Status: No Alcohol use: none Drug use: none - Family History Father Race: Family Member Ethnicity: Non- Living Status: Age at : 81 Cause of : Throat cancer Hx Family Cancer: Yes (Throat) Mother Race: Family Member Ethnicity: Non- Living Status: Age at : 32 Cause of : in a fire Brother Race: Family Member Ethnicity: Non- Living Status: Age at : 66 Cause of : [place] Hx Family Cardiac Disorders: Yes ([place]) Hx Family Cancer: Yes (Leukemia) Sister Race: Family Member Ethnicity: Non- Living Status: Age at : 45 Cause of : Stroke Hx Family Cardiac Disorders: Yes (Stroke x2, [place]) Medications and Allergies Lactose-Reduced Food/Fiber [Jevity 1.2 Benito Liquid] 1 can PO 6XD #180 can [Rx] Omeprazole [PriLOSEC] 20 mg PO DAILY #90 cap 07/10/16 [Rx] Tobramycin/Dex Opth DROPS [Tobradex Opth Drops] 1 drop BOTH EYES Q6H #1 bottle 08/03/16 [Rx] Capecitabine [Xeloda] 2 tab PO BID #56 tablet 08/20/16 [Rx] Hydromorphone HCl [Dilaudid] 0.5 tab PO Q6H PRN #30 tablet 08/20/16 [Rx] Ondansetron HCl [Zofran] 4 mg PO Q6H PRN #40 tablet 09/17/16 [Rx] Prochlorperazine Maleate [Compazine] 10 mg PO Q6HR PRN #40 tablet 09/17/16 [Rx] Naproxen Sodium [Aleve] 220 mg PO Q8H PRN 09/20/16 [History] Allergies No Known Allergies Allergy (Verified 09/20/16 13:13) - Constitutional Constitutional ROS PAL: no decreased appetite (Patient is fed exclusively through a PEG tube) - EENT Eyes: no discharge, no pain Ears: no ear discharge, no ear pain Ears, nose, mouth, throat: change in voice (Secondary to her cancer, the patient does have an open wound on the right-hand side of her face), hoarseness , mouth pain, nasal congestion - Cardiovascular Cardiovascular ROS: no chest pain, no chest pain at rest - Respiratory Respiratory: no cough, no dyspnea, no hemoptysis - Gastrointestinal Gastrointestinal: nausea, vomiting (Although both seem better now), no constipation, no diarrhea - Genitourinary Palliative ROS female: no urinary frequency, no urinary hesitancy, no urinary incontinence - Musculoskeletal Musculoskeletal ROS IM: no arthralgias, no back pain, no joint swelling - Integumentary ROS Integumentary: sores, wounds (Right side of face) - Neurological Neurological ROS: abnormal speech (Secondary to cancer), no confusion, no focal weakness, no headache(s), no lack of coordination, no memory loss - Psychiatric Psychiatric general PM: no anhedonia, no anxiety, no confusion, no depression - Endocrine Endocrine IM: other (No thyroid or diabetes issues) Palliative Care-Exam - Constitutional Vitals: Temp Pulse Resp BP Pulse Ox 98.5 F 95 18 161/66 94 09/21/16 07:21 09/21/16 07:21 09/21/16 07:21 09/21/16 07:21 09/21/16 07:21 General appearance: Present: no acute distress, thin - Head Head Exam: Absent: atraumatic, normal inspection (Bandage on right side of face over local wound) - Eye Eye exam: Present: normal appearance (Left eye appears normal right eye appears slightly sunken) - Respiratory Respiratory exam: Present: CTAB - Cardiovascular Cardiovascular exam: Present: RRR - GI/Abdominal Exam GI/Abdominal exam: Present: normal bowel sounds, soft. Absent: tenderness (PEG tube in place) - Extremities Exam Extremities exam: Present: normal inspection. Absent: pedal edema, tenderness - Neurological Exam Neurological exam: Present: alert, oriented X3, speech deficit (Due to her cancer) - Psychiatric Psychiatric exam: Present: normal affect, normal mood. Absent: agitated, anxious - Skin Skin exam: Present: dry, rash (Wound is noted to right side of face.) Internal Medicine - CN: Reslt - Labs CBC & Chem 7: 09/21/16 04:28 09/21/16 01:29 Labs: Short CBC 09/21/16 Range/Units 04:28 WBC 13.4 H (4.3-11.1) K/mcL Hgb 8.4 L (11.5-15.4) g/dL Hct 26.7 L (35.3-44.9) % Plt Count 249 (140-400) K/mcL Neutrophils # 10.2 H (1.6-8.9) K/mcL BMP 09/21/16 01:29 Sodium 138 Potassium 3.0 L Chloride 105 Carbon Dioxide 28 BUN 16 D Creatinine 0.67 Glucose 107 H Calcium 8.3 L Liver Function 09/21/16 Range/Units 01:29 Total Bilirubin 0.4 (0.2-1.2) mg/dL AST 16 (5-34) Units/L ALT 12 (0-55) Units/L Alkaline Phosphatase 62 (38-126) Units/L Albumin 2.1 L (3.5-5.0) g/dL Consult Discharge Plan - Plan Referrals: Corey,Darrell D, MD [Primary Care Provider] - Palliative Quality Palliative Quality: Screen for Code Status: Yes, Screen for Goals of Care: Yes, Screen for Pain: Yes, If Pain Regimen Started, Initiate Bowel Regimen: Yes, Screen for Nausea/Vomitting: Yes
[2016-09-21] MEDS ORDERED: Aminoglycoside Consult 1 EACH MC ONE (14:59)
[2016-09-21] MEDS: Vancomycin 750 MG in D5% in Water 250 ML IVPB SCH (15:07)
--- NOTE | 2016-09-21 16:03 | Electrocardiograph Report ---
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
--- NOTE | 2016-09-21 18:58 | Internal Med Progress Note ---
Date of Encounter: 09/21/16 Time of Encounter: 18:56 - Assessment and plan (1) Open facial wound Current Visit: Yes Status: Chronic Qualifiers: Encounter type: subsequent encounter Qualified Code(s): S01.80XD - Unspecified open wound of other part of head, subsequent encounter (2) Nausea & vomiting Current Visit: Yes Status: Acute Qualifiers: Vomiting type: cyclical vomiting Vomiting Intractability: intractable Qualified Code(s): G43.A1 - Cyclical vomiting, intractable (3) Sepsis Current Visit: Yes Status: Acute Qualifiers: Sepsis type: sepsis due to unspecified organism Qualified Code(s): A41.9 - Sepsis, unspecified organism (4) Encounter for palliative care Current Visit: Yes Status: Acute (5) Dehydration Current Visit: Yes Status: Acute (6) Cancer associated pain Current Visit: Yes Status: Acute (7) CAD (coronary artery disease) Current Visit: No Status: Chronic Qualifiers: Coronary Disease-Associated Artery/Lesion type: bypass graft [place] vs. transplanted heart: [place] heart Associated angina: without angina Qualified Code(s): I25.810 - Atherosclerosis of coronary artery bypass graft(s) without angina pectoris - Subjective Interval history: new patient admitted for intractable nausea and vomiting she has stage IV head and neck cancer for which she had chemotherapy before but now it has recurred.. She needs will need palliative care on admission it was felt that she might have sepsis. She has an open wound through her right jaw and cheek that is erythematous, edematous, and oozing fluid. She is covered with vancomycin and Zosyn. She had received chemotherapy with the Xeloda and also 3 radiation treatment for her facial wound. A repeat CAT scan in 2 weeks as planned. However admitting team inform me that she will need palliative care therefore. Her white cell count has a started coming down and hemoglobin is borderline at around 8 and H&H satisfactory. Served presently her chemistries and LFTs are quite unremarkable. She has lot of difficulty and communication due to her facial wound - Constitutional Vitals: Temp Pulse Resp BP Pulse Ox 99.4 F 98 22 177/84 94 09/21/16 11:27 09/21/16 11:27 09/21/16 11:27 09/21/16 11:27 09/21/16 11:27 General appearance: Present: cooperative, A&O X 3, no acute distress, underweight, answers questions appropriately (Dysarthria due to cancer of the face and neck) - Head Head exam: Present: atraumatic, normocephalic Additional comments: Facial warmth exam per admitting team which was done was in last 24 hours.She has an open wound through her right jaw and cheek that is erythematous, edematous, and oozing fluid. - Eye Eye exam: Present: PERRL, conjuntiva pink, sclera anicteric Pupils: Present: PERRL - Neck Neck exam general surgery: Present: supple, trachea midline. Absent: lymphadenopathy - Respiratory Respiratory exam: Present: CTAB. Absent: accessory muscle use, rales, rhonchi, wheezes - Cardiovascular Cardiovascular exam: Present: RRR, +S1, +S2. Absent: diastolic murmur, gallop, rubs, systolic murmur - GI/Abdominal GI/Abdominal exam: Present: normal bowel sounds, soft, no peritoneal signs. Absent: distended, tenderness - Extremities Exam Extremities exam: Present: warm, radial pulses palpable and symetrical. Absent : calf tenderness, cyanotic, pedal edema - Neurological Exam Neurological exam: Present: CN II-XII intact, oriented X3, no focal deficits. Absent: pronater drift, facial droop, speech deficit - Skin Skin exam: Present: dry, intact Internal Medicine: Result - Labs CBC & Chem 7: 09/21/16 04:28 09/21/16 10:01 Labs: Short CBC 09/21/16 Range/Units 04:28 WBC 13.4 H (4.3-11.1) K/mcL Hgb 8.4 L (11.5-15.4) g/dL Hct 26.7 L (35.3-44.9) % Plt Count 249 (140-400) K/mcL Neutrophils # 10.2 H (1.6-8.9) K/mcL BMP 09/21/16 09/21/16 01:29 10:01 Sodium 138 Potassium 3.0 L 4.0 D Chloride 105 Carbon Dioxide 28 BUN 16 D Creatinine 0.67 Glucose 107 H Calcium 8.3 L Liver Function 09/21/16 Range/Units 01:29 Total Bilirubin 0.4 (0.2-1.2) mg/dL AST 16 (5-34) Units/L ALT 12 (0-55) Units/L Alkaline Phosphatase 62 (38-126) Units/L Albumin 2.1 L (3.5-5.0) g/dL Consult Discharge Plan - Plan Referrals: Darrell Nicole MD [Primary Care Provider] - (SENT WEB REQUEST ON 09-21-16 @ [id number])
[2016-09-21] MEDS: *HR* HYDROmorphone (PF) 1 MG/ML SYRINGE IVP PRN (20:52)
[2016-09-21] MEDS: Ondansetron 4 MG/2 ML VIAL IVP PRN (20:57)
[2016-09-22] MEDS: Tobramycin/Dex Opth DROPS 2.5 ML BOTTLE BOTH EYES SCH ×4 (01:43→21:28)
[2016-09-22 04:58] LABS: Ionized Calcium 1.17 mmol/L (1.15-1.35)
[2016-09-22 04:59] LABS: Basophils % 0.1 %; Eosinophils # 0.7 K/mcL (0.0-0.6); Eosinophils % 4.8 %; Hemoglobin 9.5 g/dL (11.5-15.4); Immature Granulocytes % 0.5 % (0-4); Lymphocytes # 0.9 K/mcL (0.6-4.6); Lymphocytes % 6.5 %; Mean Corpuscular HGB Conc 32.8 g/dL (31.6-35.5); Mean Corpuscular Hemoglobin 29.5 pg (28.0-33.3); Mean Corpuscular Volume 90.1 fL (83.0-100.0); Mean Platelet Volume 9.3 fL (9.4-12.4); Monocytes # 1.4 K/mcL (0.0-1.3); Monocytes % 9.9 %; Neutrophils # 10.7 K/mcL (1.6-8.9); Platelet Count 293 K/mcL (140-400); Red Blood Count 3.22 M/mcL (3.82-4.97); Red Cell Distribution Width 16.1 % (11.5-14.5); Segmented Neutrophils % 78.2 %
[2016-09-22 05:15] LABS: Alanine Aminotransferase 11 Units/L (0-55); Albumin 2.2 g/dL (3.5-5.0); Albumin/Globulin Ratio 0.6 (1.1-2.2); Alkaline Phosphatase 63 Units/L (38-126); Aspartate Amino Transferase 15 Units/L (5-34); BUN/Creatinine Ratio 14 (6-26); Bilirubin,Total 0.6 mg/dL (0.2-1.2); Blood Urea Nitrogen 10 mg/dL (7-20); Calcium 8.5 mg/dL (8.6-10.8); Carbon Dioxide 29 mEq/L (19-29); Chloride 101 mEq/L (98-109); Globulin 3.5 g/dL (2.4-3.5); Glucose 148 mg/dL (70-99); Magnesium 1.4 mg/dL (1.6-2.6); Osmolality,Calculated 284 (280-300); Phosphorous 2.8 mg/dL (2.3-4.7); Sodium 136 mEq/L (136-145); Total Protein 5.7 g/dL (6.0-8.3); eGFR For African Americans > 60 (> 60); eGFR For Non-African Americans > 60 (> 60)
[2016-09-22 05:16] LABS: Potassium 2.8 mEq/L (3.5-4.5)
[2016-09-22] MEDS: Piperacillin/Tazobactam 3.375 GM in D5% in Water (Mini-Bag+) 100 ML IVPB SCH (06:32)
[2016-09-22] MEDS: Magnesium Sulfate 2 GM in D5% in Water 100 ML IVPB PRN ×2 (06:33→17:09)
[2016-09-22] MEDS: *HR* Heparin 5,000 UNIT/ML VIAL SQ SCH ×2 (08:52→16:12)
[2016-09-22] MEDS: Pantoprazole 40 MG VIAL IVP SCH (08:52)
--- NOTE | 2016-09-22 10:36 | Palliative Progress Note ---
Date of Encounter: 09/22/16 Time of Encounter: 09:50 - Assessment and plan (1) Cancer associated pain Current Visit: Yes Status: Acute Assessment and plan: Under good control at this time. Patient is doing well with when necessary Dilaudid and only seems to need this around 1 her dressings are changed. Patient is extremely resistant to using pain medication not want to even discuss morphine. Therefore we will stick with the Dilaudid. (2) Goals of care, counseling/discussion Current Visit: Yes Status: Acute Assessment and plan: CODE STATUS well-established DNR CCA, DNI. The overall plan is for her to get well enough to go home, she will undergo one more round of chemotherapy and then repeat the CT scan of her face at that time they will determine whether or not further chemotherapy is indicated. And family are on board with this. Patient has fully done all advanced directives and I have handcarried her living will and her medical power of deputy commonwealth's attorney to the records office personally. (3) Open facial wound Current Visit: Yes Status: Chronic Qualifiers: Encounter type: subsequent encounter Qualified Code(s): S01.80XD - Unspecified open wound of other part of head, subsequent encounter (4) Nausea & vomiting Current Visit: Yes Status: Acute Assessment and plan: This appears to be under very good control especially with the fact that the infection is now being actively treated. However the patient is getting continuous tube feed at this time and not getting the boluses that she does not home I will try to discuss with dietary about the same regimen she is a she is is on at home and see how she does. 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 If there is this the chemotherapy will be stopped and the patient will be directed towards hospice. There has been a long hospice discussion with the patient and family they know what to expect. Members that are employed by [facility] will probably go with [facility] with the time is appropriate. - Time Spent With Patient Total time spent is greater than 50% in coordination of care (as documented) at patient's floor/unit and/or counseling patient: - Subjective Interval history: Feels better this morning, pain is under good control is practically nonexistent and the patient is being fed via the PEG tube. He did have a small amount of nausea last night after she got her diet allotted Ammann however the friend worked well and she has required no other doses. Of note the patient normally gets bolus tube feedings we will need to reproduce these prior to her being able to go home. Patient's bowels are moving and overall she is feeling better. - Constitutional Vitals: Abnormal lab results WBC 13.6 K/mcL (4.3-11.1) H 09/22/16 04:04 RBC 3.22 M/mcL (3.82-4.97) L 09/22/16 04:04 Hgb 9.5 g/dL (11.5-15.4) L 09/22/16 04:04 Hct 29.0 % (35.3-44.9) L 09/22/16 04:04 RDW 16.1 % (11.5-14.5) H 09/22/16 04:04 MPV 9.3 fL (9.4-12.4) L 09/22/16 04:04 Neutrophils # 10.7 K/mcL (1.6-8.9) H 09/22/16 04:04 Monocytes # 1.4 K/mcL (0.0-1.3) H 09/22/16 04:04 Eosinophils # 0.7 K/mcL (0.0-0.6) H 09/22/16 04:04 Potassium 2.8 mEq/L (3.5-4.5) L D 09/22/16 04:04 Glucose 148 mg/dL (70-99) H 09/22/16 04:04 POC Glucose 133 (58-89) H 09/22/16 00:55 Calcium 8.5 mg/dL (8.6-10.8) L 09/22/16 04:04 Magnesium 1.4 mg/dL (1.6-2.6) L 09/22/16 04:04 Serum Total Protein 5.7 g/dL (6.0-8.3) L 09/22/16 04:04 Albumin 2.2 g/dL (3.5-5.0) L 09/22/16 04:04 Albumin/Globulin Ratio 0.6 (1.1-2.2) L 09/22/16 04:04 Urine Clarity Cloudy (Clear) A 09/20/16 11:23 Urine Microscopic RBC 5-15 per hpf (0-3) H 09/20/16 11:23 Ur Squamous Epith Cells Many per lpf (None-Few) H 09/20/16 11:23 General appearance: Present: no acute distress - Head Head exam: Absent: atraumatic, normal inspection (Resting on right side of face) - Eye Eye exam: Present: normal appearance (Right eye appear sunken left eye has aseptic conjunctival hemorrhage) - ENT ENT exam: Present: mucous membranes moist - Respiratory Respiratory exam: Present: CTAB - Cardiovascular Cardiovascular exam: Present: RRR, tachycardia - GI/Abdominal GI/Abdominal exam: Present: normal bowel sounds, soft. Absent: tenderness - Extremities Exam Extremities exam: Present: normal inspection. Absent: pedal edema, tenderness - Neurological Exam Neurological exam: Present: alert - Psychiatric Psychiatric exam: Present: normal affect, normal mood. Absent: agitated, anxious - Skin Skin exam: Present: dry, warm Palliative Quality Palliative Quality: Screen for Code Status: Yes, Screen for Goals of Care: Yes, Screen for Pain: Yes, If Pain Regimen Started, Initiate Bowel Regimen: Yes, Screen for Nausea/Vomitting: Yes - Labs CBC & Chem 7: 09/22/16 04:04 09/22/16 04:04 Labs: Laboratory Results - last 24 hr 09/21/16 09/21/16 09/21/16 11:28 11:59 17:18 WBC RBC Hgb Hct MCV MCH MCHC RDW Plt Count MPV Immature Gran % Seg Neutrophils % Lymphocytes % Monocytes % Eosinophils % Basophils % Neutrophils # Lymphocytes # Monocytes # Eosinophils # Basophils # Sodium Potassium Chloride Carbon Dioxide BUN Creatinine Est GFR ( Amer) Est GFR (Non-Af Amer) BUN/Creatinine Ratio Glucose POC Glucose 88 102 H Calculated Osmolality Calcium Ionized Calcium Phosphorus 3.5 Magnesium Total Bilirubin AST ALT Alkaline Phosphatase Serum Total Protein Albumin Globulin Albumin/Globulin Ratio 09/22/16 09/22/16 09/22/16 00:55 04:04 04:04 WBC 13.6 H RBC 3.22 L Hgb 9.5 L Hct 29.0 L MCV 90.1 MCH 29.5 MCHC 32.8 RDW 16.1 H Plt Count 293 MPV 9.3 L Immature Gran % 0.5 Seg Neutrophils % 78.2 Lymphocytes % 6.5 Monocytes % 9.9 Eosinophils % 4.8 Basophils % 0.1 Neutrophils # 10.7 H Lymphocytes # 0.9 Monocytes # 1.4 H Eosinophils # 0.7 H Basophils # 0.0 Sodium 136 Potassium 2.8 L D Chloride 101 Carbon Dioxide 29 BUN 10 Creatinine 0.72 Est GFR ( Amer) > 60 Est GFR (Non-Af Amer) > 60 BUN/Creatinine Ratio 14 Glucose 148 H POC Glucose 133 H Calculated Osmolality 284 Calcium 8.5 L Ionized Calcium 1.17 Phosphorus 2.8 Magnesium 1.4 L Total Bilirubin 0.6 AST 15 ALT 11 Alkaline Phosphatase 63 Serum Total Protein 5.7 L Albumin 2.2 L Globulin 3.5 Albumin/Globulin Ratio 0.6 L Consult Discharge Plan - Plan Referrals: Darrell Nicole MD [Primary Care Provider] - 09/30/16 3:00 pm () Niranjan Banerjee MD [Partnered Physician] - 09/29/16 8:10 am
[2016-09-22] MEDS: Potassium Phosphate 44 MEQ in 0.9 % Sodium Chloride 250 ML IVPB PRN (11:36)
[2016-09-22 13:36] LABS: Magnesium 1.8 mg/dL (1.6-2.6); Potassium 3.5 mEq/L (3.5-4.5)
--- NOTE | 2016-09-22 17:48 | Internal Med Progress Note ---
Date of Encounter: 09/22/16 Time of Encounter: 09:30 - Assessment and plan (1) Sepsis Current Visit: Yes Status: Acute Assessment and plan: secondary to infection of open facial wound. patient at high risk for sepsis due to stage IV cancer and ongoing chemotherapy. wound culture growing enterobacter cloacae pansensitive and GNR. blood cultures are negative so far. stop zosyn and vancomycin, start ceftriaxone. slowly improving. 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 appreciate oncology input. (3) Open facial wound Current Visit: Yes Status: Chronic Assessment and plan: plan as in sepsis. Qualifiers: Encounter type: subsequent encounter Qualified Code(s): S01.80XD - Unspecified open wound of other part of head, subsequent encounter (4) Nausea & vomiting Current Visit: Yes Status: Acute Assessment and plan: secondary to sepsis and chemotherapy. Qualifiers: Vomiting type: cyclical vomiting Vomiting Intractability: intractable Qualified Code(s): G43.A1 - Cyclical vomiting, intractable (5) Tachycardia Current Visit: Yes Status: Chronic (6) Hypertension Current Visit: Yes Status: Chronic Qualifiers: Hypertension type: essential hypertension Qualified Code(s): I10 - Essential (primary) hypertension (7) Goals of care, counseling/discussion Current Visit: Yes Status: Acute Assessment and plan: appreciate palliative input. continue antibiotics, pain meds. (8) Anemia Current Visit: Yes Status: Chronic Assessment and plan: hgb at 9.5. no bleeding. close monitor. Qualifiers: Anemia type: unspecified type Qualified Code(s): D64.9 - Anemia, unspecified (9) CAD (coronary artery disease) Current Visit: No Status: Chronic Assessment and plan: stable. Qualifiers: Coronary Disease-Associated Artery/Lesion type: bypass graft [place] vs. transplanted heart: [place] heart Associated angina: without angina Qualified Code(s): I25.810 - Atherosclerosis of coronary artery bypass graft(s) without angina pectoris - Subjective Interval history: patient reports minimal pain at facial wound site. - Constitutional Vitals: Temp Pulse Resp BP Pulse Ox 99.8 F H 103 18 166/62 92 09/22/16 15:54 09/22/16 15:54 09/22/16 15:54 09/22/16 11:44 09/22/16 15:54 General appearance: Present: cooperative, A&O X 3, pleasant, no acute distress, underweight, answers questions appropriately (Dysarthria due to cancer of the face and neck) - Neck Neck exam general surgery: Present: supple, trachea midline. Absent: lymphadenopathy - Cardiovascular Cardiovascular exam: Present: tachycardia - GI/Abdominal GI/Abdominal exam: Present: soft. Absent: distended, tenderness Additional comments: BS present. PEg tube in place. - Extremities Exam Extremities exam: Absent: pedal edema - Neurological Exam Neurological exam: Present: alert, strengths equal and symetr throughout. Absent: facial droop, speech deficit - Skin Skin exam: Absent: intact (right facial wound with purulent secretion.) Internal Medicine: Result - Labs CBC & Chem 7: 09/22/16 04:04 09/22/16 13:22 Labs: Short CBC 09/22/16 Range/Units 04:04 WBC 13.6 H (4.3-11.1) K/mcL Hgb 9.5 L (11.5-15.4) g/dL Hct 29.0 L (35.3-44.9) % Plt Count 293 (140-400) K/mcL Neutrophils # 10.7 H (1.6-8.9) K/mcL BMP 09/22/16 09/22/16 04:04 13:22 Sodium 136 Potassium 2.8 L D 3.5 Chloride 101 Carbon Dioxide 29 BUN 10 Creatinine 0.72 Glucose 148 H Calcium 8.5 L Liver Function 09/22/16 Range/Units 04:04 Total Bilirubin 0.6 (0.2-1.2) mg/dL AST 15 (5-34) Units/L ALT 11 (0-55) Units/L Alkaline Phosphatase 63 (38-126) Units/L Albumin 2.2 L (3.5-5.0) g/dL Consult Discharge Plan - Plan Referrals: Darrell Nicole MD [Primary Care Provider] - 09/30/16 3:00 pm () Niranjan Banerjee MD [Partnered Physician] - 09/29/16 8:10 am
[2016-09-22] MEDS: Ondansetron 4 MG/2 ML VIAL IVP PRN (22:24)
[2016-09-22] MEDS: *HR* HYDROmorphone (PF) 1 MG/ML SYRINGE IVP PRN (22:24)
[2016-09-22 22:54] LABS: BUN/Creatinine Ratio 12 (6-26); Blood Urea Nitrogen 9 mg/dL (7-20); Calcium 8.1 mg/dL (8.6-10.8); Carbon Dioxide 27 mEq/L (19-29); Chloride 101 mEq/L (98-109); Glucose 130 mg/dL (70-99); Magnesium 1.9 mg/dL (1.6-2.6); Osmolality,Calculated 276 (280-300); Phosphorous 2.6 mg/dL (2.3-4.7); Potassium 3.8 mEq/L (3.5-4.5); Sodium 133 mEq/L (136-145); eGFR For African Americans > 60 (> 60); eGFR For Non-African Americans > 60 (> 60)
[2016-09-23] MEDS: *HR* Heparin 5,000 UNIT/ML VIAL SQ SCH ×3 (00:02→15:26)
[2016-09-23] MEDS: Potassium Phosphate 44 MEQ in 0.9 % Sodium Chloride 250 ML IVPB PRN (00:02)
[2016-09-23] MEDS: Magnesium Sulfate 2 GM in D5% in Water 100 ML IVPB PRN (00:03)
[2016-09-23] MEDS: Tobramycin/Dex Opth DROPS 2.5 ML BOTTLE BOTH EYES SCH ×4 (00:19→20:29)
[2016-09-23 03:46] LABS: Basophils % 0.2 %; Eosinophils # 0.8 K/mcL (0.0-0.6); Eosinophils % 5.3 %; Hematocrit 27.3 % (35.3-44.9); Hemoglobin 8.8 g/dL (11.5-15.4); Immature Granulocytes % 0.5 % (0-4); Lymphocytes # 1.1 K/mcL (0.6-4.6); Lymphocytes % 7.7 %; Mean Corpuscular HGB Conc 32.2 g/dL (31.6-35.5); Mean Corpuscular Volume 90.1 fL (83.0-100.0); Mean Platelet Volume 8.4 fL (9.4-12.4); Monocytes # 1.8 K/mcL (0.0-1.3); Monocytes % 12.4 %; Neutrophils # 10.5 K/mcL (1.6-8.9); Platelet Count 244 K/mcL (140-400); Red Blood Count 3.03 M/mcL (3.82-4.97); Red Cell Distribution Width 15.9 % (11.5-14.5); Segmented Neutrophils % 73.9 %
[2016-09-23 04:06] LABS: BUN/Creatinine Ratio 14 (6-26); Blood Urea Nitrogen 10 mg/dL (7-20); Carbon Dioxide 28 mEq/L (19-29); Chloride 101 mEq/L (98-109); Glucose 119 mg/dL (70-99); Magnesium 2.3 mg/dL (1.6-2.6); Osmolality,Calculated 278 (280-300); Phosphorous 4.5 mg/dL (2.3-4.7); Potassium 4.1 mEq/L (3.5-4.5); Sodium 134 mEq/L (136-145); eGFR For African Americans > 60 (> 60); eGFR For Non-African Americans > 60 (> 60)
[2016-09-23] MEDS: Vancomycin 750 MG in D5% in Water 250 ML IVPB SCH (08:20)
[2016-09-23] MEDS: Pantoprazole 40 MG VIAL IVP SCH (08:20)
--- NOTE | 2016-09-23 08:26 | Palliative Progress Note ---
Date of Encounter: 09/23/16 Time of Encounter: 09:50 - Assessment and plan (1) Cancer associated pain Current Visit: Yes Status: Acute Assessment and plan: Under good control at this time. Patient is doing well with when necessary Dilaudid and only seems to need this around 1 her dressings are changed. Patient is extremely resistant to using pain medication not want to even discuss morphine. Therefore we will stick with the Dilaudid. Changes today. (2) Goals of care, counseling/discussion Current Visit: Yes Status: Acute Assessment and plan: CODE STATUS well-established DNR CCA, DNI. The overall plan is for her to get well enough to go home, she will undergo one more round of chemotherapy and then repeat the CT scan of her face at that time they will determine whether or not further chemotherapy is indicated. And family are on board with this. Patient has fully done all advanced directives and I have handcarried her living will and her medical power of school photographs detailer to the records office personally. (3) Open facial wound Current Visit: Yes Status: Chronic Assessment and plan: Wound care is following, patient is on the correct antibiotics for this. Discussion with the hospitalist team they will probably want to continue her on IV antibiotics for the end of the week and may send her out finish out at home. If IV antibiotics. Qualifiers: Encounter type: subsequent encounter Qualified Code(s): S01.80XD - Unspecified open wound of other part of head, subsequent encounter (4) Nausea & vomiting Current Visit: Yes Status: Acute Assessment and plan: This appears to be under very good control especially with the fact that the infection is now being actively treated. The patient only had nausea when she had her Dilaudid for her dressing change. She is tolerating everything quite well. No changes today.. 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 If there is this the chemotherapy will be stopped and the patient will be directed towards hospice. There has been a long hospice discussion with the patient and family they know what to expect. Members that are employed by [facility] will probably go with [facility] with the time is appropriate. Changes today. - Time Spent With Patient Total time spent is greater than 50% in coordination of care (as documented) at patient's floor/unit and/or counseling patient: - Subjective Interval history: Feels better this morning, pain is under good control is practically nonexistent and the patient is being fed via the PEG tube. He is now getting bolus feedings that she gets at home. She is that she has had has been associated with getting Dilaudid for the pain when they change her dressing. Overall the patient is feeling much better and looking much stronger.. - Constitutional Vitals: Abnormal lab results WBC 14.3 K/mcL (4.3-11.1) H 09/23/16 03:30 RBC 3.03 M/mcL (3.82-4.97) L 09/23/16 03:30 Hgb 8.8 g/dL (11.5-15.4) L 09/23/16 03:30 Hct 27.3 % (35.3-44.9) L 09/23/16 03:30 RDW 15.9 % (11.5-14.5) H 09/23/16 03:30 MPV 8.4 fL (9.4-12.4) L 09/23/16 03:30 Neutrophils # 10.5 K/mcL (1.6-8.9) H 09/23/16 03:30 Monocytes # 1.8 K/mcL (0.0-1.3) H 09/23/16 03:30 Eosinophils # 0.8 K/mcL (0.0-0.6) H 09/23/16 03:30 Sodium 134 mEq/L (136-145) L 09/23/16 03:30 Glucose 119 mg/dL (70-99) H 09/23/16 03:30 POC Glucose 115 (58-89) H 09/23/16 05:57 Calculated Osmolality 278 (280-300) L 09/23/16 03:30 Calcium 8.0 mg/dL (8.6-10.8) L 09/23/16 03:30 Serum Total Protein 5.7 g/dL (6.0-8.3) L 09/22/16 04:04 Albumin 2.2 g/dL (3.5-5.0) L 09/22/16 04:04 Albumin/Globulin Ratio 0.6 (1.1-2.2) L 09/22/16 04:04 Urine Clarity Cloudy (Clear) A 09/20/16 11:23 Urine Microscopic RBC 5-15 per hpf (0-3) H 09/20/16 11:23 Ur Squamous Epith Cells Many per lpf (None-Few) H 09/20/16 11:23 Vancomycin Trough 4.1 mcg/mL (10-20) L 09/22/16 13:22 General appearance: Present: no acute distress - Eye Eye exam: Absent: normal appearance - Respiratory Respiratory exam: Present: CTAB - Expanded Respiratory Exam Location: decreased breath sounds: Left, dullness to percussion: Left, rales: Left, rhonchi: Left, wheezes: Left - Cardiovascular Cardiovascular exam: Present: RRR, tachycardia - GI/Abdominal GI/Abdominal exam: Present: normal bowel sounds (Has PEG tube), soft. Absent: tenderness - Extremities Exam Extremities exam: Present: normal inspection. Absent: pedal edema - Neurological Exam Neurological exam: Present: alert - Psychiatric Psychiatric exam: Absent: agitated, anxious - Skin Skin exam: Present: dry, warm Palliative Quality Palliative Quality: Screen for Code Status: Yes, Screen for Goals of Care: Yes, Screen for Pain: Yes, If Pain Regimen Started, Initiate Bowel Regimen: Yes, Screen for Nausea/Vomitting: Yes - Labs CBC & Chem 7: 09/23/16 03:30 09/23/16 03:30 Labs: Laboratory Results - last 24 hr 09/22/16 09/22/16 09/22/16 06:18 11:48 13:22 WBC RBC Hgb Hct MCV MCH MCHC RDW Plt Count MPV Immature Gran % Seg Neutrophils % Lymphocytes % Monocytes % Eosinophils % Basophils % Neutrophils # Lymphocytes # Monocytes # Eosinophils # Basophils # Sodium Potassium Chloride Carbon Dioxide BUN Creatinine Est GFR ( Amer) Est GFR (Non-Af Amer) BUN/Creatinine Ratio Glucose POC Glucose 158 H 127 H Calculated Osmolality Calcium Phosphorus Magnesium Vancomycin Trough 4.1 L 09/22/16 09/22/16 09/22/16 13:22 18:03 22:30 WBC RBC Hgb Hct MCV MCH MCHC RDW Plt Count MPV Immature Gran % Seg Neutrophils % Lymphocytes % Monocytes % Eosinophils % Basophils % Neutrophils # Lymphocytes # Monocytes # Eosinophils # Basophils # Sodium 133 L Potassium 3.5 3.8 Chloride 101 Carbon Dioxide 27 BUN 9 Creatinine 0.75 Est GFR ( Amer) > 60 Est GFR (Non-Af Amer) > 60 BUN/Creatinine Ratio 12 Glucose 130 H POC Glucose 154 H Calculated Osmolality 276 L Calcium 8.1 L Phosphorus 2.6 Magnesium 1.8 1.9 Vancomycin Trough 09/23/16 09/23/16 09/23/16 03:30 03:30 05:57 WBC 14.3 H RBC 3.03 L Hgb 8.8 L Hct 27.3 L MCV 90.1 MCH 29.0 MCHC 32.2 RDW 15.9 H Plt Count 244 MPV 8.4 L Immature Gran % 0.5 Seg Neutrophils % 73.9 Lymphocytes % 7.7 Monocytes % 12.4 Eosinophils % 5.3 Basophils % 0.2 Neutrophils # 10.5 H Lymphocytes # 1.1 Monocytes # 1.8 H Eosinophils # 0.8 H Basophils # 0.0 Sodium 134 L Potassium 4.1 Chloride 101 Carbon Dioxide 28 BUN 10 Creatinine 0.71 Est GFR ( Amer) > 60 Est GFR (Non-Af Amer) > 60 BUN/Creatinine Ratio 14 Glucose 119 H POC Glucose 115 H Calculated Osmolality 278 L Calcium 8.0 L Phosphorus 4.5 D Magnesium 2.3 Vancomycin Trough Consult Discharge Plan - Plan Referrals: Darrell Nicole MD [Primary Care Provider] - 09/30/16 3:00 pm () Niranjan Banerjee MD [Partnered Physician] - 09/29/16 8:10 am
--- NOTE | 2016-09-23 20:08 | Internal Med Progress Note ---
Date of Encounter: 09/23/16 Time of Encounter: 08:00 - Assessment and plan (1) Sepsis Current Visit: Yes Status: Acute Assessment and plan: secondary to infection of open facial wound. patient at high risk for sepsis due to stage IV cancer and ongoing chemotherapy. wound culture grew pansensitive Klebsiella pneumoniae and Enterobacter cloacae. blood cultures are negative so far. Continue ceftriaxone. Due to fever I will resume IV vancomycin. slowly improving. We will plan for discharge with IV vancomycin and ceftriaxone for a total of 10 days this coming Wednesday if no clinical changes. 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 appreciate oncology input. (3) Open facial wound Current Visit: Yes Status: Chronic Assessment and plan: plan as in sepsis. Qualifiers: Encounter type: subsequent encounter Qualified Code(s): S01.80XD - Unspecified open wound of other part of head, subsequent encounter (4) Nausea & vomiting Current Visit: Yes Status: Acute Assessment and plan: secondary to sepsis and chemotherapy. Qualifiers: Vomiting type: cyclical vomiting Vomiting Intractability: intractable Qualified Code(s): G43.A1 - Cyclical vomiting, intractable (5) Tachycardia Current Visit: Yes Status: Chronic (6) Hypertension Current Visit: Yes Status: Chronic Qualifiers: Hypertension type: essential hypertension Qualified Code(s): I10 - Essential (primary) hypertension (7) Goals of care, counseling/discussion Current Visit: Yes Status: Acute Assessment and plan: appreciate palliative input. continue antibiotics, pain meds. (8) Anemia Current Visit: Yes Status: Chronic Assessment and plan: hgb at 9.5. no bleeding. close monitor. Qualifiers: Anemia type: unspecified type Qualified Code(s): D64.9 - Anemia, unspecified (9) CAD (coronary artery disease) Current Visit: No Status: Chronic Assessment and plan: stable. Qualifiers: Coronary Disease-Associated Artery/Lesion type: bypass graft [place] vs. transplanted heart: [place] heart Associated angina: without angina Qualified Code(s): I25.810 - Atherosclerosis of coronary artery bypass graft(s) without angina pectoris - Subjective Interval history: patient feels better and wants to go home. She had a fever of 101.2 yesterday evening. - Constitutional Vitals: Temp Pulse Resp BP Pulse Ox 99.1 F 126 16 169/74 95 09/23/16 15:17 09/23/16 15:17 09/23/16 15:17 09/23/16 15:17 09/23/16 15:17 General appearance: Present: cachectic, cooperative, A&O X 3, pleasant, no acute distress, answers questions appropriately (Dysarthria due to cancer of the face and neck) - Head Additional comments: right face: large opening close to the right labial commisure, no purulent discharge. - Eye Eye exam: Present: PERRL, sclera anicteric - Neck Neck exam general surgery: Present: supple, trachea midline. Absent: lymphadenopathy - Respiratory Respiratory exam: Present: CTAB - Cardiovascular Cardiovascular exam: Present: RRR - GI/Abdominal GI/Abdominal exam: Present: normal bowel sounds, soft. Absent: distended, tenderness (PEG in site) - Extremities Exam Extremities exam: Absent: pedal edema - Back Exam Back exam: Absent: CVA tenderness (L), CVA tenderness (R) - Neurological Exam Neurological exam: Present: alert, oriented X3, no focal deficits, strengths equal and symetr throughout Internal Medicine: Result - Labs CBC & Chem 7: 09/23/16 03:30 09/23/16 03:30 Labs: Short CBC 09/23/16 Range/Units 03:30 WBC 14.3 H (4.3-11.1) K/mcL Hgb 8.8 L (11.5-15.4) g/dL Hct 27.3 L (35.3-44.9) % Plt Count 244 (140-400) K/mcL Neutrophils # 10.5 H (1.6-8.9) K/mcL BMP 09/22/16 09/23/16 22:30 03:30 Sodium 133 L 134 L Potassium 3.8 4.1 Chloride 101 101 Carbon Dioxide 27 28 BUN 9 10 Creatinine 0.75 0.71 Glucose 130 H 119 H Calcium 8.1 L 8.0 L Consult Discharge Plan - Plan Referrals: Darrell Nicole MD [Primary Care Provider] - 09/30/16 3:00 pm () Niranjan Banerjee MD [Partnered Physician] - 09/29/16 8:10 am
[2016-09-23] MEDS: Metoclopramide 10 MG/10 ML UD.LIQ GTUBE SCH ×2 (20:30→20:43)
[2016-09-24] MEDS: Tobramycin/Dex Opth DROPS 2.5 ML BOTTLE BOTH EYES SCH ×5 (00:14→23:48)
[2016-09-24] MEDS: *HR* Heparin 5,000 UNIT/ML VIAL SQ SCH ×4 (00:14→23:48)
[2016-09-24 06:16] LABS: Basophils % 0.2 %; Eosinophils # 0.1 K/mcL (0.0-0.6); Eosinophils % 0.9 %; Hematocrit 30.3 % (35.3-44.9); Hemoglobin 9.5 g/dL (11.5-15.4); Immature Granulocytes % 1.3 % (0-4); Lymphocytes # 1.1 K/mcL (0.6-4.6); Lymphocytes % 6.9 %; Mean Corpuscular HGB Conc 31.4 g/dL (31.6-35.5); Mean Corpuscular Hemoglobin 28.8 pg (28.0-33.3); Mean Corpuscular Volume 91.8 fL (83.0-100.0); Mean Platelet Volume 9.4 fL (9.4-12.4); Monocytes # 1.8 K/mcL (0.0-1.3); Monocytes % 10.8 %; Neutrophils # 13.1 K/mcL (1.6-8.9); Nucleated Red Blood Cells 0.1 /100 WBC (0); Platelet Count 272 K/mcL (140-400); Red Cell Distribution Width 16.1 % (11.5-14.5); Segmented Neutrophils % 79.9 %
[2016-09-24 06:42] LABS: BUN/Creatinine Ratio 18 (6-26); Blood Urea Nitrogen 14 mg/dL (7-20); Calcium 8.5 mg/dL (8.6-10.8); Carbon Dioxide 29 mEq/L (19-29); Chloride 101 mEq/L (98-109); Glucose 131 mg/dL (70-99); Magnesium 1.7 mg/dL (1.6-2.6); Osmolality,Calculated 286 (280-300); Potassium 3.4 mEq/L (3.5-4.5); Sodium 137 mEq/L (136-145); eGFR For African Americans > 60 (> 60); eGFR For Non-African Americans > 60 (> 60)
[2016-09-24 07:54] LABS: Phosphorous 3.2 mg/dL (2.3-4.7)
[2016-09-24] MEDS: Pantoprazole 40 MG VIAL IVP SCH (08:06)
[2016-09-24] MEDS: Metoclopramide 10 MG/10 ML UD.LIQ GTUBE SCH ×4 (08:07→20:53)
[2016-09-24] MEDS: Vancomycin 750 MG in D5% in Water 250 ML IVPB SCH (08:13)
[2016-09-24] MEDS: Magnesium Sulfate 2 GM in D5% in Water 100 ML IVPB PRN (08:15)
[2016-09-24] MEDS ORDERED: MetroNIDAZOLE 500 MG/100 ML 500 MG/100 ML BAG IVPB SCH (09:29)
--- NOTE | 2016-09-24 11:03 | Palliative Progress Note ---
Date of Encounter: 09/24/16 Time of Encounter: 08:00 - Assessment and plan (1) Cancer associated pain Current Visit: Yes Status: Acute Assessment and plan: Under good control at this time. Patient is doing well with when necessary Dilaudid and only seems to need this around 1 her dressings are changed. Patient is extremely resistant to using pain medication not want to even discuss morphine. Therefore we will stick with the Dilaudid. No Changes today. (2) Goals of care, counseling/discussion Current Visit: Yes Status: Acute Assessment and plan: CODE STATUS well-established DNR CCA, DNI. The overall plan is for her to get well enough to go home, she will undergo one more round of chemotherapy and then repeat the CT scan of her face at that time they will determine whether or not further chemotherapy is indicated. And family are on board with this. Patient has fully done all advanced directives and I have handcarried her living will and her medical power of finance attorney to the records office personally. (As of today these documents still not been scanned in) (3) Open facial wound Current Visit: Yes Status: Chronic Assessment and plan: Wound care is following, patient is on the correct antibiotics for this. Discussion with the hospitalist team they will send patient home with further antibiotics after today. Qualifiers: Encounter type: subsequent encounter Qualified Code(s): S01.80XD - Unspecified open wound of other part of head, subsequent encounter (4) Nausea & vomiting Current Visit: Yes Status: Acute Assessment and plan: This appears to be under very good control especially with the fact that the infection is now being actively treated. The patient only had nausea when she had her Dilaudid for her dressing change. He has been started on Reglan and this is working quite well. 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 If there is this the chemotherapy will be stopped and the patient will be directed towards hospice. There has been a long hospice discussion with the patient and family they know what to expect. Members that are employed by [facility] will probably go with [facility] with the time is appropriate. No Changes today. - Time Spent With Patient Total time spent is greater than 50% in coordination of care (as documented) at patient's floor/unit and/or counseling patient: - Subjective Interval history: Feels better this morning, pain is under good control is practically nonexistent and the patient is being fed via the PEG tube. He is now getting bolus feedings that she gets at home. She has had no further nausea especially with regularly dosed Reglan, there were some residuals, however this appears to have resolved since getting the Reglan. Patient is very anxious to finish up antibiotics today and go home tomorrow. As her understanding that she will be a little have antibiotics at home. - Constitutional Vitals: Abnormal lab results WBC 16.5 K/mcL (4.3-11.1) H 09/24/16 04:48 RBC 3.30 M/mcL (3.82-4.97) L 09/24/16 04:48 Hgb 9.5 g/dL (11.5-15.4) L 09/24/16 04:48 Hct 30.3 % (35.3-44.9) L 09/24/16 04:48 MCHC 31.4 g/dL (31.6-35.5) L 09/24/16 04:48 RDW 16.1 % (11.5-14.5) H 09/24/16 04:48 Neutrophils # 13.1 K/mcL (1.6-8.9) H 09/24/16 04:48 Monocytes # 1.8 K/mcL (0.0-1.3) H 09/24/16 04:48 Nucleated RBCs/100 WBC 0.1 /100 WBC (0) H 09/24/16 04:48 Potassium 3.4 mEq/L (3.5-4.5) L 09/24/16 04:48 Glucose 131 mg/dL (70-99) H 09/24/16 04:48 POC Glucose 127 (58-89) H 09/24/16 06:50 Calcium 8.5 mg/dL (8.6-10.8) L 09/24/16 04:48 Serum Total Protein 5.7 g/dL (6.0-8.3) L 09/22/16 04:04 Albumin 2.2 g/dL (3.5-5.0) L 09/22/16 04:04 Albumin/Globulin Ratio 0.6 (1.1-2.2) L 09/22/16 04:04 Urine Clarity Cloudy (Clear) A 09/20/16 11:23 Urine Microscopic RBC 5-15 per hpf (0-3) H 09/20/16 11:23 Ur Squamous Epith Cells Many per lpf (None-Few) H 09/20/16 11:23 Vancomycin Trough 4.1 mcg/mL (10-20) L 09/22/16 13:22 General appearance: Present: no acute distress - Eye Eye exam: Absent: normal appearance (Right eye is closed and sunken left eye has a sub conjunctival hematoma) - ENT ENT exam: Present: mucous membranes moist - Neck Neck exam: Present: normal inspection - Respiratory Respiratory exam: Present: CTAB - Cardiovascular Cardiovascular exam: Present: RRR - GI/Abdominal GI/Abdominal exam: Present: normal bowel sounds, soft. Absent: tenderness - Extremities Exam Extremities exam: Present: normal inspection. Absent: pedal edema - Neurological Exam Neurological exam: Present: alert - Psychiatric Psychiatric exam: Absent: agitated, anxious - Skin Skin exam: Present: dry, warm Palliative Quality Palliative Quality: Screen for Code Status: Yes, Screen for Goals of Care: Yes, Screen for Pain: Yes, If Pain Regimen Started, Initiate Bowel Regimen: Yes, Screen for Nausea/Vomitting: Yes - Labs CBC & Chem 7: 09/24/16 04:48 09/24/16 04:48 Labs: Laboratory Results - last 24 hr 09/23/16 09/24/16 09/24/16 17:34 04:48 04:48 WBC 16.5 H RBC 3.30 L Hgb 9.5 L Hct 30.3 L MCV 91.8 MCH 28.8 MCHC 31.4 L RDW 16.1 H Plt Count 272 MPV 9.4 Immature Gran % 1.3 Seg Neutrophils % 79.9 Lymphocytes % 6.9 Monocytes % 10.8 Eosinophils % 0.9 Basophils % 0.2 Neutrophils # 13.1 H Lymphocytes # 1.1 Monocytes # 1.8 H Eosinophils # 0.1 Basophils # 0.0 Nucleated RBCs/100 WBC 0.1 H Sodium 137 Potassium 3.4 L Chloride 101 Carbon Dioxide 29 BUN 14 Creatinine 0.78 Est GFR ( Amer) > 60 Est GFR (Non-Af Amer) > 60 BUN/Creatinine Ratio 18 Glucose 131 H POC Glucose 134 H Calculated Osmolality 286 Calcium 8.5 L Phosphorus 3.2 Magnesium 1.7 Stl C. diff Tox B Gene 09/24/16 09/24/16 04:55 06:50 WBC RBC Hgb Hct MCV MCH MCHC RDW Plt Count MPV Immature Gran % Seg Neutrophils % Lymphocytes % Monocytes % Eosinophils % Basophils % Neutrophils # Lymphocytes # Monocytes # Eosinophils # Basophils # Nucleated RBCs/100 WBC Sodium Potassium Chloride Carbon Dioxide BUN Creatinine Est GFR ( Amer) Est GFR (Non-Af Amer) BUN/Creatinine Ratio Glucose POC Glucose 127 H Calculated Osmolality Calcium Phosphorus Magnesium Stl C. diff Tox B Gene Negative Consult Discharge Plan - Plan Referrals: Darrell Nicole MD [Primary Care Provider] - 09/30/16 3:00 pm () Niranjan Banerjee MD [Partnered Physician] - 09/29/16 8:10 am Prescriptions: Ceftriaxone Sodium [Ceftriaxone] 1 gm IV DAILY #7 vial.port Vancomycin [Vancocin] 750 mg IV DAILY #8 vial
--- NOTE | 2016-09-24 17:31 | Internal Med Progress Note ---
Date of Encounter: 09/24/16 Time of Encounter: 10:30 - Assessment and plan (1) Sepsis Current Visit: Yes Status: Acute Assessment and plan: Secondary to infection of open facial wound. patient at high risk for sepsis due to stage IV cancer and ongoing chemotherapy. Wound culture grew pansensitive Klebsiella pneumoniae and Enterobacter cloacae. blood cultures are negative so far. Continue ceftriaxone. Slowly improving. We will plan for discharge with IV Vancomycin and Ceftriaxone for a total of 10 days tomorrow if no clinical changes. 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 appreciate oncology input. (3) Open facial wound Current Visit: Yes Status: Chronic Assessment and plan: plan as in sepsis. Qualifiers: Encounter type: subsequent encounter Qualified Code(s): S01.80XD - Unspecified open wound of other part of head, subsequent encounter (4) Nausea & vomiting Current Visit: Yes Status: Acute Assessment and plan: secondary to sepsis and chemotherapy. Qualifiers: Vomiting type: cyclical vomiting Vomiting Intractability: intractable Qualified Code(s): G43.A1 - Cyclical vomiting, intractable (5) Tachycardia Current Visit: Yes Status: Chronic (6) Hypertension Current Visit: Yes Status: Chronic Qualifiers: Hypertension type: essential hypertension Qualified Code(s): I10 - Essential (primary) hypertension (7) Goals of care, counseling/discussion Current Visit: Yes Status: Acute Assessment and plan: appreciate palliative input. continue antibiotics, pain meds. (8) Anemia Current Visit: Yes Status: Chronic Assessment and plan: hgb at 9.5. no bleeding. close monitor. Qualifiers: Anemia type: unspecified type Qualified Code(s): D64.9 - Anemia, unspecified (9) CAD (coronary artery disease) Current Visit: No Status: Chronic Assessment and plan: stable. Qualifiers: Coronary Disease-Associated Artery/Lesion type: bypass graft [place] vs. transplanted heart: [place] heart Associated angina: without angina Qualified Code(s): I25.810 - Atherosclerosis of coronary artery bypass graft(s) without angina pectoris - Subjective Interval history: Patient is eager to go home and declines rehab. temp up to 99. pt had diarrhea this morning. - Constitutional Vitals: Temp Pulse Resp BP Pulse Ox 98.2 F 105 20 128/55 96 09/24/16 16:00 09/24/16 16:00 09/24/16 16:00 09/24/16 16:00 09/24/16 16:00 General appearance: Present: cachectic, cooperative, A&O X 3, pleasant, no acute distress, answers questions appropriately (Dysarthria due to cancer of the face and neck) - Head Additional comments: right face: large opening close to the right labial commisure, no purulent discharge - Neck Neck exam general surgery: Present: supple, trachea midline. Absent: lymphadenopathy - Respiratory Respiratory exam: Present: CTAB - Cardiovascular Cardiovascular exam: Present: RRR - GI/Abdominal GI/Abdominal exam: Present: normal bowel sounds, soft. Absent: distended, tenderness (PEg tube at site) - Extremities Exam Extremities exam: Absent: pedal edema - Back Exam Back exam: Absent: CVA tenderness (L), CVA tenderness (R) - Neurological Exam Neurological exam: Present: alert, oriented X3, strengths equal and symetr throughout Internal Medicine: Result - Labs CBC & Chem 7: 09/24/16 04:48 09/24/16 04:48 Labs: Short CBC 09/24/16 Range/Units 04:48 WBC 16.5 H (4.3-11.1) K/mcL Hgb 9.5 L (11.5-15.4) g/dL Hct 30.3 L (35.3-44.9) % Plt Count 272 (140-400) K/mcL Neutrophils # 13.1 H (1.6-8.9) K/mcL BMP 09/24/16 04:48 Sodium 137 Potassium 3.4 L Chloride 101 Carbon Dioxide 29 BUN 14 Creatinine 0.78 Glucose 131 H Calcium 8.5 L Consult Discharge Plan - Plan Referrals: Darrell Nicole MD [Primary Care Provider] - 09/30/16 3:00 pm () Niranjan Banerjee MD [Partnered Physician] - 09/29/16 8:10 am Prescriptions: Ceftriaxone Sodium [Ceftriaxone] 1 gm IV DAILY #7 vial.port Vancomycin [Vancocin] 750 mg IV DAILY #8 vial
[2016-09-25 03:54] LABS: Basophils % 0.2 %; Eosinophils % 8.5 %; Hematocrit 26.8 % (35.3-44.9); Hemoglobin 8.3 g/dL (11.5-15.4); Immature Granulocytes % 1.1 % (0-4); Immature Platelets 1.1 % (1.1-6.1); Lymphocytes # 0.9 K/mcL (0.6-4.6); Mean Corpuscular Hemoglobin 28.2 pg (28.0-33.3); Mean Corpuscular Volume 91.2 fL (83.0-100.0); Mean Platelet Volume 8.8 fL (9.4-12.4); Monocytes # 1.2 K/mcL (0.0-1.3); Monocytes % 10.2 %; Neutrophils # 8.4 K/mcL (1.6-8.9); Platelet Count 273 K/mcL (140-400); Red Blood Count 2.94 M/mcL (3.82-4.97); Red Cell Distribution Width 15.9 % (11.5-14.5)
[2016-09-25 04:14] LABS: BUN/Creatinine Ratio 18 (6-26); Blood Urea Nitrogen 13 mg/dL (7-20); Calcium 8.2 mg/dL (8.6-10.8); Carbon Dioxide 32 mEq/L (19-29); Chloride 102 mEq/L (98-109); Glucose 116 mg/dL (70-99); Magnesium 1.7 mg/dL (1.6-2.6); Osmolality,Calculated 283 (280-300); Potassium 3.7 mEq/L (3.5-4.5); Sodium 136 mEq/L (136-145); eGFR For African Americans > 60 (> 60); eGFR For Non-African Americans > 60 (> 60)
[2016-09-25] MEDS: Magnesium Sulfate 2 GM in D5% in Water 100 ML IVPB PRN (04:57)
--- NOTE | 2016-09-25 08:40 | Discharge Summary ---
Date of Encounter: 09/25/16 Time of Encounter: 08:15 - Discharge Diagnosis (1) Sepsis Priority: Primary Status: Acute Qualifiers: Sepsis type: sepsis due to unspecified organism Qualified Code(s): A41.9 - Sepsis, unspecified organism (2) Open facial wound Priority: Primary Status: Acute Qualifiers: Encounter type: subsequent encounter Qualified Code(s): S01.80XD - Unspecified open wound of other part of head, subsequent encounter (3) Squamous cell carcinoma of mouth Priority: Primary Status: Chronic (4) Nausea & vomiting Priority: Primary Status: Acute Qualifiers: Vomiting type: cyclical vomiting Vomiting Intractability: intractable Qualified Code(s): G43.A1 - Cyclical vomiting, intractable (5) Tachycardia Priority: Primary Status: Chronic (6) Hypertension Priority: Secondary Status: Chronic Qualifiers: Hypertension type: essential hypertension Qualified Code(s): I10 - Essential (primary) hypertension (7) Goals of care, counseling/discussion Priority: Primary Status: Acute (8) Anemia Priority: Secondary Status: Chronic Qualifiers: Anemia type: unspecified type Qualified Code(s): D64.9 - Anemia, unspecified (9) CAD (coronary artery disease) Priority: Secondary Status: Chronic Qualifiers: Coronary Disease-Associated Artery/Lesion type: bypass graft [place] vs. transplanted heart: [place] heart Associated angina: without angina Qualified Code(s): I25.810 - Atherosclerosis of coronary artery bypass graft(s) without angina pectoris - Discharge Medications Prescriptions: Ceftriaxone Sodium [Ceftriaxone] 1 gm IV DAILY #7 vial.port Commode - Three In One [THREE IN ONE COMMODE] 1 each .ROUTE DAILY #1 each Metoclopramide [Reglan] 5 mg GTUBE ACHS #360 Vancomycin [Vancocin] 750 mg IV DAILY #8 vial Home Medications: Lactose-Reduced Food/Fiber [Jevity 1.2 [place]ito Liquid] 1 can PO 6XD #180 can [Rx] Omeprazole [PriLOSEC] 20 mg PO DAILY #90 cap 07/10/16 [Rx] Tobramycin/Dex Opth DROPS [Tobradex Opth Drops] 1 drop BOTH EYES Q6H #1 bottle 08/03/16 [Rx] Capecitabine [Xeloda] 2 tab PO BID #56 tablet 08/20/16 [Rx] Hydromorphone HCl [Dilaudid] 0.5 tab PO Q6H PRN #30 tablet 08/20/16 [Rx] Ondansetron HCl [Zofran] 4 mg PO Q6H PRN #40 tablet 09/17/16 [Rx] Prochlorperazine Maleate [Compazine] 10 mg PO Q6HR PRN #40 tablet 09/17/16 [Rx] Naproxen Sodium [Aleve] 220 mg PO Q8H PRN 09/20/16 [History] Ceftriaxone Sodium [Ceftriaxone] 1 gm IV DAILY #7 vial.port 09/23/16 [Rx] Vancomycin [Vancocin] 750 mg IV DAILY #8 vial 09/23/16 [Rx] Commode - Three In One [THREE IN ONE COMMODE] 1 each .ROUTE DAILY #1 each [Rx] Metoclopramide [Reglan] 5 mg GTUBE ACHS #360 09/25/16 [Rx] Allergies/Adverse Reactions: Allergies No Known Allergies Allergy (Verified 09/20/16 13:13) Date of admission: 09/20/16 13:15 Primary care physician: Darrell Nicole MD Consults: 09/20/16 13:32 Consult to Palliative Care [CONS] Routine Comment: Consulting Provider: Palliative Care Ni Reason for Consult: Patient currently admitted with infection and sepsis. Patient has cancer of the head and neck that returned and worsened. Pt. sees Dr. Escobedo for oncology. Discussed need for palliative care with daughter (POA) who is very amenable. Discussed case with Dr. Acosta who will see Mrs. Harris. Call Completed: Yes 09/20/16 15:32 Consult to Health Type Technician [CONS] Routine Reason for SW Consult: discharge planning 09/20/16 16:10 Consult to Wound Care [CONS] Routine Reason for Consult: Patient has open wound of the right jaw/cheek related to cancer diagnosis. Wound is currently painful and oozing fluid. Will need assessment and non-stick protectant covering. Call Completed: No 09/21/16 13:57 Consult to Nutrition [CONS] Stat Comment: PEG jevity bolus at home Consulting Provider: NUTRITION Reason for Dietary Consult: Other 09/23/16 14:40 Consult to Physical Therapy [CONS] Routine Comment: Evaluate, develop and implement POC Reason for Consult: strengthening OT [Consult to Occupational Therapy] [CONS] Routine Comment: Evaluate, develop and implement POC Reason for Consult: strengthening - Patient Status Disposition: Home Health Service Condition: Fair Functional capacity at discharge: uses cane/walker Overall status at discharge: patient is not back to baseline - Discharge Instructions Follow Up With: Darrell Nicole MD [Primary Care Provider] - 09/30/16 3:00 pm () Niranjan Banerjee MD [Partnered Physician] - 09/29/16 8:10 am - Diet and Activity Activity: as per physical therapy Diet: other (Jevity 1.5 4 cans/day) Interval History: patient feels better, she is eager to go home. Hospital course: Ms. Harris is a 81 year old female with past medical history of head and neck cancer (Right retromolar trigone buccal mucosa, and right maxillary sinus involvement, with orocutaneous fistula and skin metastasis) who presented with a chief complaint of nausea and vomiting. Patient has an open facial wound that extends through the fascia into the mouth due to her head and neck cancer diagnosis and radiotherapy. It was noted purulent secretions through her open wound. She was diagnosed with infected open facial wound and was started on empiric antibiotics including Zosyn and vancomycin. Wound culture grew pansensitive kits even pneumonitis Enterobacter +. Blood cultures negative. She was the escalated to ceftriaxone and IV vancomycin. She had episodes of diarrhea but CT test was negative. She continued to improve clinically in regards to her wound infection. PLAN: Continue IV ceftriaxone and add IV vancomycin for a total of 10 days. Follow-up in the oncology clinic as scheduled. - Time Spent with Patient Total time spent providing and/or coordinating discharge services: - Constitutional Vitals: Temp Pulse Resp BP Pulse Ox 97.9 F 94 18 150/80 95 09/25/16 07:28 09/25/16 07:28 09/25/16 07:28 09/25/16 07:28 09/25/16 07:28 General appearance: Present: cachectic, cooperative, A&O X 3, pleasant, no acute distress, answers questions appropriately (Dysarthria due to cancer of the face and neck) - Head Additional comments: right face: large opening close to the right labial commisure, mild purulent discharge - Respiratory Respiratory exam: Present: CTAB - Cardiovascular Cardiovascular exam: Present: tachycardia - GI/Abdominal GI/Abdominal exam: Present: normal bowel sounds, soft. Absent: distended, tenderness - Extremities Exam Extremities exam: Absent: pedal edema - Back Exam Back exam: Absent: CVA tenderness (L), CVA tenderness (R) - Neurological Exam Neurological exam: Present: alert, oriented X3, strengths equal and symetr throughout - Skin Skin exam: Absent: intact
--- NOTE | 2016-09-25 08:46 | Physician Discharge Referral ---
Home Health/Hosp Referral Info Transfer to: Home Health Attending Provider: toñito Provider in Charge Post Discharge: PCP - Diagnosis (1) Sepsis Status: Acute (2) Open facial wound Status: Acute (3) Squamous cell carcinoma of mouth Status: Chronic (4) Nausea & vomiting Status: Acute (5) Tachycardia Status: Chronic (6) Hypertension Status: Chronic (7) Goals of care, counseling/discussion Status: Acute (8) Anemia Status: Chronic (9) CAD (coronary artery disease) Status: Chronic - Respiratory Orders Smoking Cessation: Smoking cessation has been advised. For more information, call the [place] [employer] Quit Line at 0-650-QZCX-NOW. - Diet/Nutrition Diet/Nutrition: List: tube feedings: jevity 1.5 4 cans per day - Activity Activity Orders: Walker - Services Needed Following services are medically necessary services: Nursing, Physical Therapy, Occupational Therapy, Home Infusion - Transfer Medications Prescriptions: Ceftriaxone Sodium [Ceftriaxone] 1 gm IV DAILY #7 vial.port Metoclopramide [Reglan] 5 mg GTUBE ACHS #360 Vancomycin [Vancocin] 750 mg IV DAILY #8 vial Home Medications: Lactose-Reduced Food/Fiber [Jevity 1.2 [place] Liquid] 1 can PO 6XD #180 can [Rx] Omeprazole [PriLOSEC] 20 mg PO DAILY #90 cap 07/10/16 [Rx] Tobramycin/Dex Opth DROPS [Tobradex Opth Drops] 1 drop BOTH EYES Q6H #1 bottle 08/03/16 [Rx] Capecitabine [Xeloda] 2 tab PO BID #56 tablet 08/20/16 [Rx] Hydromorphone HCl [Dilaudid] 0.5 tab PO Q6H PRN #30 tablet 08/20/16 [Rx] Ondansetron HCl [Zofran] 4 mg PO Q6H PRN #40 tablet 09/17/16 [Rx] Prochlorperazine Maleate [Compazine] 10 mg PO Q6HR PRN #40 tablet 09/17/16 [Rx] Naproxen Sodium [Aleve] 220 mg PO Q8H PRN 09/20/16 [History] Ceftriaxone Sodium [Ceftriaxone] 1 gm IV DAILY #7 vial.port 09/23/16 [Rx] Vancomycin [Vancocin] 750 mg IV DAILY #8 vial 09/23/16 [Rx] Metoclopramide [Reglan] 5 mg [facility] #360 09/25/16 [Rx] Allergies/Adverse Reactions: Allergies No Known Allergies Allergy (Verified 09/20/16 13:13) Certification: Further, I certify that my clinical findings support that this patient is homebound (i.e. absences from home require considerable and taxing effort and are for medical reasons or [facility] services or infrequently or short duration when for other reasons) because: Homebound Reason: Patient requires assistance of a person or device to safely leave home, Leaving home requires considerable and taxing effort due to condition Attestation: My signature below is to certify that this patient is under my care and that I, or nurse practitioner, or a physician's assistant business manager working with me, has a face-to -face encounter with this patient.
--- NOTE | 2016-09-25 09:02 | Palliative Progress Note ---
Date of Encounter: 09/25/16 Time of Encounter: 07:15 - Assessment and plan (1) Cancer associated pain Current Visit: Yes Status: Acute Assessment and plan: Under good control at this time. Patient is doing well with when necessary Dilaudid and only seems to need this around 1 her dressings are changed. Patient is extremely resistant to using pain medication not want to even discuss morphine. Therefore we will stick with the Dilaudid. No Changes today. Problem discharge today continue current meds. (2) Goals of care, counseling/discussion Current Visit: Yes Status: Acute Assessment and plan: CODE STATUS well-established DNR CCA, DNI. The overall plan is for her to get well enough to go home, she will undergo one more round of chemotherapy and then repeat the CT scan of her face at that time they will determine whether or not further chemotherapy is indicated. And family are on board with this. Patient has fully done all advanced directives and I have handcarried her living will and her medical power of traffic law attorney to the records office personally. (As of today these documents still not been scanned in) sadly today, probably of discharge this continues to be true. (3) Open facial wound Current Visit: Yes Status: Acute Assessment and plan: Wound care is following, patient is on the correct antibiotics for this. Discussion with the hospitalist team they will send patient home with further antibiotics after today. Qualifiers: Encounter type: subsequent encounter Qualified Code(s): S01.80XD - Unspecified open wound of other part of head, subsequent encounter (4) Nausea & vomiting Current Visit: Yes Status: Acute Assessment and plan: This appears to be under very good control especially with the fact that the infection is now being actively treated. The patient only had nausea when she had her Dilaudid for her dressing change. He has been started on Reglan and this is working quite well. 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 If there is this the chemotherapy will be stopped and the patient will be directed towards hospice. There has been a long hospice discussion with the patient and family they know what to expect. Members that are employed by [facility] [employer] will probably go with [facility] with the time is appropriate. No Changes today. - Time Spent With Patient Total time spent is greater than 50% in coordination of care (as documented) at patient's floor/unit and/or counseling patient: - Subjective Interval history: Feels better this morning, pain is under good control is practically nonexistent and the patient is being fed via the PEG tube. The patient is looking forward to going home today, she remains hopeful that the chemotherapy will eventually be back to helping her. - Constitutional Vitals: Abnormal lab results WBC 11.7 K/mcL (4.3-11.1) H 09/25/16 03:35 RBC 2.94 M/mcL (3.82-4.97) L 09/25/16 03:35 Hgb 8.3 g/dL (11.5-15.4) L 09/25/16 03:35 Hct 26.8 % (35.3-44.9) L 09/25/16 03:35 MCHC 31.0 g/dL (31.6-35.5) L 09/25/16 03:35 RDW 15.9 % (11.5-14.5) H 09/25/16 03:35 MPV 8.8 fL (9.4-12.4) L 09/25/16 03:35 Eosinophils # 1.0 K/mcL (0.0-0.6) H 09/25/16 03:35 Nucleated RBCs/100 WBC 0.1 /100 WBC (0) H 09/24/16 04:48 Carbon Dioxide 32 mEq/L (19-29) H 09/25/16 03:35 Glucose 116 mg/dL (70-99) H 09/25/16 03:35 POC Glucose 130 (58-89) H 09/25/16 05:41 Calcium 8.2 mg/dL (8.6-10.8) L 09/25/16 03:35 Serum Total Protein 5.7 g/dL (6.0-8.3) L 09/22/16 04:04 Albumin 2.2 g/dL (3.5-5.0) L 09/22/16 04:04 Albumin/Globulin Ratio 0.6 (1.1-2.2) L 09/22/16 04:04 Urine Clarity Cloudy (Clear) A 09/20/16 11:23 Urine Microscopic RBC 5-15 per hpf (0-3) H 09/20/16 11:23 Ur Squamous Epith Cells Many per lpf (None-Few) H 09/20/16 11:23 Vancomycin Trough 6.7 mcg/mL (10-20) L 09/25/16 03:35 General appearance: Present: no acute distress - Head Head exam: Present: atraumatic, normal inspection - Neck Neck exam: Present: normal inspection - Respiratory Respiratory exam: Present: CTAB - Cardiovascular Cardiovascular exam: Present: RRR, tachycardia - GI/Abdominal GI/Abdominal exam: Present: normal bowel sounds, soft. Absent: tenderness - Extremities Exam Extremities exam: Present: normal inspection. Absent: pedal edema, tenderness - Neurological Exam Neurological exam: Present: alert - Psychiatric Psychiatric exam: Absent: agitated, anxious - Skin Skin exam: Present: dry, warm Palliative Quality Palliative Quality: Screen for Code Status: Yes, Screen for Goals of Care: Yes, Screen for Pain: Yes, If Pain Regimen Started, Initiate Bowel Regimen: Yes, Screen for Nausea/Vomitting: Yes - Labs CBC & Chem 7: 09/25/16 03:35 09/25/16 03:35 Labs: Laboratory Results - last 24 hr 09/24/16 09/24/16 09/24/16 04:55 12:36 18:45 WBC RBC Hgb Hct MCV MCH MCHC RDW Plt Count MPV Immature Gran % Seg Neutrophils % Lymphocytes % Monocytes % Eosinophils % Basophils % Neutrophils # Lymphocytes # Monocytes # Eosinophils # Basophils # Immature Plt Fraction Sodium Potassium Chloride Carbon Dioxide BUN Creatinine Est GFR ( Amer) Est GFR (Non-Af Amer) BUN/Creatinine Ratio Glucose POC Glucose 108 H 114 H Calculated Osmolality Calcium Magnesium Stl C. diff Tox B Gene Negative Vancomycin Trough 09/24/16 09/25/16 09/25/16 23:48 03:35 03:35 WBC 11.7 H RBC 2.94 L Hgb 8.3 L Hct 26.8 L MCV 91.2 MCH 28.2 MCHC 31.0 L RDW 15.9 H Plt Count 273 MPV 8.8 L Immature Gran % 1.1 Seg Neutrophils % 72.0 Lymphocytes % 8.0 Monocytes % 10.2 Eosinophils % 8.5 Basophils % 0.2 Neutrophils # 8.4 Lymphocytes # 0.9 Monocytes # 1.2 Eosinophils # 1.0 H Basophils # 0.0 Immature Plt Fraction 1.1 Sodium Potassium Chloride Carbon Dioxide BUN Creatinine Est GFR ( Amer) Est GFR (Non-Af Amer) BUN/Creatinine Ratio Glucose POC Glucose 147 H Calculated Osmolality Calcium Magnesium Stl C. diff Tox B Gene Vancomycin Trough 6.7 L 09/25/16 09/25/16 03:35 05:41 WBC RBC Hgb Hct MCV MCH MCHC RDW Plt Count MPV Immature Gran % Seg Neutrophils % Lymphocytes % Monocytes % Eosinophils % Basophils % Neutrophils # Lymphocytes # Monocytes # Eosinophils # Basophils # Immature Plt Fraction Sodium 136 Potassium 3.7 Chloride 102 Carbon Dioxide 32 H BUN 13 Creatinine 0.71 Est GFR ( Amer) > 60 Est GFR (Non-Af Amer) > 60 BUN/Creatinine Ratio 18 Glucose 116 H POC Glucose 130 H Calculated Osmolality 283 Calcium 8.2 L Magnesium 1.7 Stl C. diff Tox B Gene Vancomycin Trough Consult Discharge Plan - Plan Referrals: Darrell Nicole MD [Primary Care Provider] - 09/30/16 3:00 pm () Niranjan Banerjee MD [Partnered Physician] - 09/29/16 8:10 am Prescriptions: Ceftriaxone Sodium [Ceftriaxone] 1 gm IV DAILY #7 vial.port Metoclopramide [Reglan] 5 mg GTUBE ACHS #360 Vancomycin [Vancocin] 750 mg IV DAILY #8 vial
[2016-09-25] MEDS: Metoclopramide 10 MG/10 ML UD.LIQ GTUBE SCH ×2 (09:07→12:17)
[2016-09-25] MEDS: *HR* Heparin 5,000 UNIT/ML VIAL SQ SCH (09:08)
[2016-09-25] MEDS: Pantoprazole 40 MG VIAL IVP SCH (09:08)
[2016-09-25] MEDS: Vancomycin 750 MG in D5% in Water 250 ML IVPB SCH (09:08)
[2016-09-25 12:05] VITALS: BP 139/61
[2016-09-25] MEDS: Tobramycin/Dex Opth DROPS 2.5 ML BOTTLE BOTH EYES SCH ×2 (14:15→14:36)
[2016-09-25] MEDS ORDERED: Aminoglycoside Consult 1 EACH MC ONE (16:26)
[2016-09-26] MEDS ORDERED: Vancomycin 1,000 MG in D5% in Water 250 ML IVPB SCH (08:00)
== END 2016-09-25 16:27 | disposition home health service (06) | DRG 872 ==
LOC: 3ANU 09:51 → EMEROO 09:51 → OBSVTOIN 13:02 → SUATTDRO 13:15 → EMEROO 14:21 → 3ANU 14:21 → 2NNU 19:37
PROVIDERS: ADMIT Family Medicine; ATTEND Internal Medicine